=== PATIENT | female | born 1975 | race Caucasian/White ===

== ENCOUNTER 2020-05-02 09:20 | Emergency (ER) | payer BC ==
[~2020-05-02] VITALS: Ht 165.1 cm; Wt 64.4 kg
--- OUTSIDE RECORDS SUMMARY | ~2020-05-02 | XMS | Encounter Summary ---
Demographics + + + | Address | [address] | | | [place] [address] | + + + | Home Phone | | + + + | Preferred Language | Unknown | + + + | Marital Status | | + + + | Orthodox Affiliation | 1013 | + + + | Race | Unknown | + + + | Ethnic Group | Unknown | + + + Author + + + | Author | [facility] | | | and [place] | + + + | Organization | [facility] | | | and [place] | + + + | Address | Unknown | + + + | Phone | Unavailable | + + + Support + + + + + | Name | Relationship | Address | Phone | + + + + + | El Nava | ECON | [address] | | | | | [place] | | | | | [address] | | + + + + + | Chey Hein | ECON | [place] | | | | | [address] | | + + + + + Care Team Providers + +------+ + | Care Sas Developer Name | Role | Phone | + +------+ + | Iraida Loredo | PCP | | | PA-C | | | + +------+ + Encounter Details +--------+ + + + + | Date | Type | Department | Care Team | Description | +--------+ + + + + | 04/07/ | Orders Only | [facility] | Pérez Hilliard MD | Ruptured lumbar disc | | 2018 | | NEUROSURGERY [address] | [address] | (Primary Dx) | | | | [address] | [place] [address] | | | | | [place] | [phone] | | | | | [address] | | | | | | [phone] | | | +--------+ + + + + Social History + +-------+ +--------+------+ | Tobacco Use | Types | Packs/Day | Years | Date | | | | | Used | | + +-------+ +--------+------+ | Never Smoker | | | | | + +-------+ +--------+------+ + +---+---+---+ | Smokeless Tobacco: | | | | | Never Used | | | | + +---+---+---+ + + +---------+ + | Alcohol Use | Drinks/Week | oz/Week | Comments | + + +---------+ + | Yes | | | Occasionally, | | | | | Socially | + + +---------+ + + + + | Sex Assigned at | Date Recorded | | | | + + + | Not on file | | + + + documented as of this encounter Plan of Treatment Not on filedocumented as of this encounter Visit Diagnoses + + | Diagnosis | + + | Ruptured lumbar disc - Primary Displacement of lumbar intervertebral disc without | | myelopathy | + + documented in this encounter"
--- OUTSIDE RECORDS SUMMARY | ~2020-05-02 | XMS | Encounter Summary ---
Demographics + + + | Address | [address] | | | [place] [address] | + + + | Home Phone | | + + + | Preferred Language | Unknown | + + + | Marital Status | | + + + | Faith Affiliation | 1013 | + + + | Race | Unknown | + + + | Ethnic Group | Unknown | + + + Author + + + | Author | [facility] | | | and [place] | + + + | Organization | [facility] | | | and [...] [place] | | | | | [address] | | + + + + + | Chey Hein | ECON | [place] | | | | | [address] | | + + + + + Care Team Providers + +------+ + | Care Assistant Prosecuting Attorney Name | Role | Phone | + +------+ + | Iraida Loredo | PCP | | | PA-C | | | + +------+ + Encounter Details +--------+ + + + + | Date | Type | Department | Care Team | Description | +--------+ + + + + | 01/27/ | Episode | [facility] [place] | Suze Aragon, | | | 2017 | Changes | NEUROSURGERY [address] | [place] | | | | | [address] | | | | | | [place] | | | | | | [address] | | | | | | [phone] | | | +--------+ + + + [...] filedocumented as of this encounter Visit Diagnoses Not on filedocumented in this encounter"
--- OUTSIDE RECORDS SUMMARY | ~2020-05-02 | XMS | Encounter Summary ---
Demographics + + + | Address | [address] | | | [place] [address] | + + + | Home Phone | | + + + | Preferred Language | Unknown | + + + | Marital Status | | + + + | Confucianist Affiliation | 1013 | + + + | Race | Unknown | + + + | Ethnic Group | Unknown | + + + Author + + + | Author | [facility] | | | and [place] | + + + | Organization | [facility] | | | and [...] [place] | | | | | [address] | | + + + + + | Chey Hein | ECON | [place] | | | | | [address] | | + + + + + Care Team Providers + +------+ + | Care Seamark Advanced Operator Maintainer Name | Role | Phone | + +------+ + | Iraida Loredo | PCP | | | PA-C | | | + +------+ + Reason for Visit + + + | Reason | Comments | + + + | Back Pain | | + + + Evaluate & Treat (Routine) +--------+--------+ + + + + | Status | Reason | Specialty | Diagnoses / | Referred By | Referred To | | | | | Procedures | Contact | Contact | +--------+--------+ + + + + | Closed | | Neurosurgery | Diagnoses | Eleanor, | Brayan, | | | | | Lumbar disc | James Carrion, | Dillon Mckeon DO | | | | | herniation | MD [address] | [address] | | | | | | [address] | [address] | | | | | | [place], | [place] | | | | | | [place] [address] | [address] Phone: | | | | | | Phone: | [phone] | | | | | | [phone] | Fax: | | | | | | Fax: | [phone] | | | | | | [phone] | | +--------+--------+ + + + + Encounter Details +--------+---------+ + + + | Date | Type | Department | Care Team | Description | +--------+---------+ + + + | 01/23/ | Office | [facility] | Dillon Schmidt, | Lumbar disc | | 2017 | Visit | NEUROSURGERY [address] | DO [address] | herniation (Primary | | | | [address] | [address] [place], [place] | Dx); Lumbar | | | | [place], [place] | [address] | radiculopathy; | | | | [address] | | Chronic midline low | | | | [phone] | | back pain with | | | | | | right-sided sciatica | +--------+---------+ + + + Social History + +-------+ [...] + + documented as of this encounter Last Filed Vital Signs + + + + + | Vital Sign | Reading | Time Taken | Comments | + + + + + | Blood Pressure | 108/72 | 01/23/2018 10:43 AM | | | | | PDT | | + + + + + | Pulse | 72 | 01/23/2018 10:43 AM | | | | | PDT | | + + + + + | Temperature | - | - | | + + + + + | Respiratory Rate | - | - | | + + + + + | Oxygen Saturation | - | - | | + + + + + | Inhaled Oxygen | - | - | | | Concentration | | | | + + + + + | Weight | 61.2 kg (135 lb) | 01/23/2018 10:43 AM | | | | | PDT | | + + + + + | Height | 162.6 cm (5' 4") | 01/23/2018 10:43 AM | | | | | PDT | | + + + + + | Body Mass Index | 23.17 | 01/23/2018 10:43 AM | | | | | PDT | | + + + + + documented in this encounter Patient Instructions Patient Instructions Dillon Schmidt DO - 01/23/2018 10:30 AM PDTPlease follow-up with you r primary care physician for preoperative clearance. Please present for surgery when scheduled. documented in this encounter Progress Notes Dillon Schmidt DO - 01/23/2018 10:30 AM PDTFormatting of this note might be different fro m the original. Dillon Schmidt DO [address] [facility] [place] [address] FAX: [phone] NEUROSURGERY HISTORY AND PHYSICAL EXAMINATION CHIEF COMPLAINT: Chief Complaint Patient presents with Back Pain HISTORY OF PRESENT ILLNESS: The patient is a 42 y.o. female with the complaint of right le g pain symptoms that began many years ago, but is worse since May 2017. 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 She works at [employer]. The symptoms have been unchanged. She rates the pain as moderate. The symptoms are daily. She describes the pain as aching. The patient describes leg symptoms that occur on primarily on the right. The leg symptoms account for 90% of her symptoms. The leg symptoms are constant, and the symptoms travel fro m the back to the sole of the foot. The patient also describes numbness of the leg. The patient does not report any change in bowel or bladder function recently. Her symptoms improve with rest and walking. Her symptoms worsen with changing position, standing, sitting, bending, twisting, stairs an d light exertion. She has tried lifestyle modification, pain medication, rest, massage, chiropractics, acupun cture, steroid injections. PAST MEDICAL HISTORY: History reviewed. No pertinent past medical history. PAST SURGICAL HISTORY: History reviewed. No pertinent surgical history. CURRENT MEDICATIONS: No current outpatient prescriptions on file. No current facility-administered medications for this visit. ALLERGIES: Allergies Allergen Reactions Hydrocodone Nausea And Vomiting SOCIAL HISTORY: The patient reports that she has never smoked. She has never used smokeless tobacco. She r eports that she drinks alcohol. She reports that she does not use drugs. FAMILY HISTORY: Family History Problem Relation Age of Onset Prostate cancer Paternal Uncle Cancer Maternal Grandfather Leukemia Emphysema Paternal Grandmother Emphysema Paternal Grandfather REVIEW OF SYSTEMS GENERALLY: No fever, no night sweats, no anemia, no fatigue, no recent profound weight ch anges. EYES: No eye problems, no use of corrective lenses, no eye injury, no double vision, no bl indness. EARS, NOSE, AND THROAT: No changes in taste or smell, no hearing difficulty, no ringing in the ears, no ear drainage, no dizziness, no voice changes, no difficulty swallowing, no sig nificant snoring, no sleep apnea, no sinus problems, + major dental work. NEUROLOGICALLY: Please see the review of systems discussed above in the history of present illness. PSYCHIATRIC: No depression, no sleep disorders, no anxiety, no bipolar disorder, no psycho tic episodes. CARDIOVASCULAR: No heart attacks, no heart murmur, no heart fluttering, no chest pain, no ankle swelling. LUNG DISEASE: No shortness of breath, no cough, no tuberculosis, no bloody cough, no asth ma, no emphysema/COPD. GASTROINTESTINAL: No bowel disease, no nausea or vomiting, no rectal bleeding, no constipa tion, no stool incontinence, no liver disease, no gallbladder disease, no abdominal pain, no ulcers. KIDNEY DISEASE: No urinary frequency, no painful or difficult urination, no incontinence. ENDOCRINE: No diabetes, no thyroid disease, no osteopenia or osteoporosis, no breast drain age. SKIN: No breast lumps, no skin changes, no rashes, no itches. HEMATOLOGIC/LYMPHATIC: No enlarged lymph nodes, no easy or unusual bleeding, no personal h istory of cancer. RHEUMATOLOGIC: No joint arthritis, no rheumatoid arthritis. PHYSICAL EXAMINATION: Blood pressure 108/72, pulse 72, height 1.626 m (5' 4"), weight 61.2 kg (135 lb). Body mass index is 23.17 kg/m. GENERAL: Fabio Fisher is in no acute distress with unlabored respirations. The patie nt does appear uncomfortable throughout the exam today. HEENT: Head: Normocephalic/atraumatic with no areas of recent trauma. Eyes: Normal sclerae without icterus. Ears: No drainage or tenderness. Nasopharnyx: Clear without drainage. Oropharnyx: Clear without erythema. NECK (ANTERIOR): Supple and without palpable masses. CHEST: Clear to ausculation without crackles or wheeze. HEART: Regular rate and rhythm without murmurs. ABDOMEN: Soft, non-tender, non-distended, and without palpable masses. The patient is not o bese. SPINE: There is no tenderness of there cervical or thoracic spine. The lumbar spine shows there is tenderness in the midline of the L5, S1 levels. To palpati on, there is no significant myofascial tenderness. There is no significant pain to provacative testing of the SI joint. There is no major deformity noted. EXTREMITIES: No cyanosis, clubbing, or edema. Distal pulses are palpable. NEUROLOGICAL EXAM: MENTAL STATUS: The patient is awake, alert, and oriented. She follows simple and complex commands. Her speech is fluent, she comprehends speech well, and she repeats well. She has no apparent deficits with short or exterminator helper memory. CRANIAL NERVES: II: Acuity is intact. Barnard are full to confrontation. III, IV, : The pupils are reactive. Extraocular movements are intact. No ptosis is note d. V: Facial sensation is intact and symmetric. VII: Facial movements are symmetric. VIII: Hearing is intact bilaterally. IX, X: The uvula and palate move appropriately. XI: Shrug is equal bilaterally. XII: Tongue protrusion is midline. MOTOR EXAM: (5 IS NORMAL) * Indicates pain limited MUSCLE/ MOVEMENT: RIGHT LEFT Deltoids 5 5 Biceps 5 5 Triceps 5 5 Wrist Flexion 5 5 Wrist Extension 5 5 Median Intrinsics 5 5 Ulnar Intrinsics 5 5 Nail Specialist Strength 5 5 Hip Flexion 5 5 Hip Extension 5 5 Knee Flexion 5 5 Knee Extension 5 5 Dorsiflexion 5 5 Extensor Hallicus Longus 5 5 Plantarflexion 4+ 5 SENSORY EXAM: Sensory exam shows right S1-type dysesthesia. REFLEXES: (2 OR 2+ IS NORMAL) REFLEX: RIGHT LEFT BICEPS 2+ 2+ BRACHIORADIALIS 2+ 2+ TRICEPS 2+ 2+ PATELLAR 2+ 2+ ACHILLES 1+ 2+ LOPEZ'S ABSENT ABSENT PLANTAR DOWNGOING DOWNGOING GAIT: Gait is steady. PERIPHERAL NERVE/MISC: Tinel is negative at the wrists and elbows bilaterally. Phalen is negative. Straight leg raise is positive on the left. Jose's test of the hips is negative bilaterally. TEST AND RADIOGRAPHIC REVIEW: The patient's imaging was reviewed in detail with the patient today during the visit. The MRI of the lumbar spine from 08/01/17 demonstrates loss of lumbar lordosis. There is spondyl osis L4-5 and L5-S1 with a large disc bulge at L5-S1 eccentric to the right with severe late ral recess stenosis at that level. Lumbar x-rays show no major instability. ASSESSMENT: NEUROSURGICAL DIAGNOSES: Encounter Diagnoses Name Primary? Lumbar disc herniation Yes Lumbar radiculopathy Chronic midline low back pain with right-sided sciatica GENERAL DIAGNOSES: History reviewed. No pertinent past medical history. PLAN: Fabio Fisher presented today, and it was a pleasure seeing this patient and assessing her neurologic problems. The patient has a large disc bulge at L5-S1 with severe right lateral recess stenosis. This is likely conbtibuting to her back and leg symptoms. I had a lengthy discussion with the patient about her options for care including surgical a nd non-surgical options. She would like to proceed with minimally-invasive microdiscectomy o n the right at L5-S1. We discussed the risks, alternatives, and benefits to surgical intervention with Fabio Fisher in clinic. These risks included but were not limited to , stroke, heart attac k, numbness, weakness, paralysis, recurrence, instability, subsidence, adjacent segment dege neration, cerebrospinal fluid leak, bleeding, infection, injury to surrounding tissues and o rgans, injury from positioning, injury to the nerves, and need for additional surgery. Surgical options were discussed and the technique to be employed was described in detail to her. All her questions were answered. We discussed that the goal of the surgery is to prevent progression of her disease, but it is not considered a cure. We also discussed that although some patients may obtain 100% sym ptom relief, it is realistic to anticipate that some symptoms will continue postoperatively despite a successful surgery. We also discussed that there is no guarantee that surgery will provide improvement in her c ondition, and indeed may even worsen the symptoms. We also discussed that in the course of the procedure the operative plan may be altered to include more, less, or different levels d epending upon findings in order to provide her with the best possible outcome. She will follow-up with her primary care provider for preoperative clearance and optimizati on prior to presenting for surgery. She will undergo MRI of the lumbar spine prior to surgery since the last MRI was from 2016. ELECTRONICALLY SIGNED BY: Dillon Schmidt DO, 01/23/2018 11:23 documented in this encounter Plan of Treatment Not on filedocumented as of this encounter Visit Diagnoses + + | Diagnosis | + + | Lumbar disc herniation - Primary Displacement of lumbar intervertebral disc without | | myelopathy | + + | Lumbar radiculopathy Thoracic or lumbosacral neuritis or radiculitis, unspecified | + + | Chronic midline low back pain with right-sided sciatica | + + documented in this encounter
--- OUTSIDE RECORDS SUMMARY | ~2020-05-02 | XMS | Encounter Summary ---
Demographics + + + | Address | [address] | | | [place] [address] | + + + | Home Phone | | + + + | Preferred Language | Unknown | + + + | Marital Status | | + + + | Caodaism Affiliation | 1013 | + + + | Race | Unknown | + + + | Ethnic Group | Unknown | + + + Author + + + | Author | [facility] | | | and [place] | + + + | Organization | [facility] | | | and [...] [place] | | | | | [address] | | + + + + + | Chey Hein | ECON | FORGE OPERATOR [place] | | | | | [address] | | + + + + + Care Team Providers + +------+ + | Care Furniture Mechanic Name | Role | Phone | + +------+ + | Iraida Loredo | PCP | | | PA-C | | | + +------+ + Reason for Visit Auth/Cert +--------+--------+ + + + + | Status | Reason | Specialty | Diagnoses / | Referred By | Referred To | | | | | Procedures | Contact | Contact | +--------+--------+ + + + + | | | | Diagnoses | | | | | | | Ruptured | | | | | | | lumbar disc | | | | | | | (M51.26) | | | | | | | Procedures | | | | | | | CO LAMNOTMY | | | | | | | INCL | | | | | | | W/DCMPRSN | | | | | | | NRV ROOT 1 | | | | | | | INTRSPC | | | | | | | LUMBR L5-S1 | | | | | | | | | | | | | | Microdiscect | | | | | | | robin | | | +--------+--------+ + + + + Encounter Details +--------+ + + + + | Date | Type | Department | Care Team | Description | +--------+ + + + + | 05/04/ | Anesthesia | [facility] | Steven Willams MD | | | 2018 | Event | [facility] | [address] | | | | | [address] | [place], [place] | | | | | [place], [place] | [address] | | | | | [address] | | | | | | [phone] | [place], | | | | | | Carlos Perdue MD | | | | | | [address] | | | | | | [place], [place] | | | | | | [address] | | | | | | | | +--------+ + + + + Anesthesia Record + + + + + | Procedure Name | Responsible | Anesthesia Start | Anesthesia Stop Time | | | Anesthesiologist | Time | | + + + + + | L5-S1 | Steven Willams MD | 05/04/18 1051 | 05/04/18 1207 | | Microdiscectomy | | | | | (Right Back) | | | | + + + + + +----+---+ + + | Da | T | Event | Comment | | te | i | | | | | m | | | | | e | | | +----+---+ + + | 08 | 1 | | | | /1 | 0 | | | | 3/ | 4 | | | | 20 | 7 | | | | 18 | | | | +----+---+ + + | | 1 | An Checkout | Pre-use anesthesia machine/equipment checkout. | | | 0 | | | | | 5 | | | | | 1 | | | +----+---+ + + | | 1 | An Start | Reassessment prior to anesthesia induction/procedure. | | | 0 | | | | | 5 | | | | | 1 | | | +----+---+ + + | | 1 | Antibiotic | | | | 0 | Given | | | | 5 | | | | | 1 | | | +----+---+ + + | | 1 | Preoxygenat | | | | 0 | ed | | | | 5 | | | | | 4 | | | +----+---+ + + | | 1 | An | | | | 0 | Induction | | | | 5 | | | | | 5 | | | +----+---+ + + | | 1 | An | | | | 0 | Intubation | | | | 5 | | | | | 9 | | | +----+---+ + + | | 1 | Lengby | | | | 1 | 43-degrees | | | | 0 | | | | | 6 | | | +----+---+ + + | | 1 | Pre-Procedu | | | | 1 | ral Timeout | | | | 0 | Completed | | | | 6 | | | +----+---+ + + | | 1 | First | | | | 1 | Inc/Proc St | | | | 0 | | | | | 8 | | | +----+---+ + + | | 1 | Lengby off | | | | 1 | | | | | 5 | | | | | 4 | | | +----+---+ + + | | 1 | Breathing | | | | 1 | Spontaneous | | | | 5 | ly | | | | 4 | | | +----+---+ + + | | 1 | Oropharynx | | | | 2 | Suctioned | | | | 0 | | | | | 3 | | | +----+---+ + + | | 1 | Moving | | | | 2 | Purposefull | | | | 0 | y | | | | 3 | | | +----+---+ + + | | 1 | Extubated | | | | 2 | Awake | | | | 0 | | | | | 3 | | | +----+---+ + + | | 1 | an stop | | | | 2 | data | | | | 0 | | | | | 3 | | | +----+---+ + + | | 1 | An Stop | Patient handed off to recovery nurse. | | | 0 | | | | | 7 | | | +----+---+ + + +------+ | Meds | +------+ + + + | Name | Total | + + + | lidocaine 2% | 20 mg | + + + | propofol (DIPRIVAN) injection | 200 mg | | (bolus) (20 mL) | | + + + | dexamethasone | 10 mg | + + + | HYDROmorphone | 0.4 mg | + + + | rocuronium | 30 mg | + + + | neostigmine | 2 mg | + + + | glycopyrrolate | 0.4 mg | + + + | ceFAZolin (ANCEF, KEFZOL) 100 | 2 g | | mg/mL IV syringe 2 g | | + + + | midazolam | 2 mg | + + + | lactated ringers (LR) infusion | 1,000 mL | + + + + + | Name | + + | N2O Flow Rate (L/Min) | + + | O2 Flow Rate (L/Min) | + + | Insp O2 | + + | Exp LEONIE | + + | Air Flow Rate (L/Min) | + + + + | No blood administrations on file. | + + +--------+ + + + | Type | Details | Placement | Removal | +--------+ + + + | Periph | 05/04/18; 1039; Right; Distal; | 05/04/18 1039 by | 05/04/18 1758 by | | eral | Antecubital; [id number] | Carolyn Erwin, RN | Melina Stevenson, | | IV | catheter system; 20 gauge; | | RN | | | intradermal injection, tolerated | | | | | well; no longer indicated, | | | | | catheter/device intact, removed | | | | | per policy/procedure; healing | | | | | within expectations; 05/04/18; | | | | | 1758 | | | +--------+ + + + | Airway | Placement Date: 05/04/18; | 05/04/18 1059 by | 05/04/18 1203 by | | | Placement Time: 1059; Mask | Steven Willams MD | Steven Willams MD | | | Ventilation: EZ; Airway Grade: 1; | | | | | Successful Technique: Mac; | | | | | Laryngoscope Blade Size: 3; | | | | | Airway Type: oral, endotracheal, | | | | | cuffed, disposable; Size: 6.5; | | | | | Airway Tube Secured At: 22; Tube | | | | | Reference Point: lip; Trauma: | | | | | none; Placement Check: bilateral | | | | | chest rise, exhaled CO2 detection | | | | | device; Removal Date: 05/04/18; | | | | | Removal Time: 1203 | | | +--------+ + + + | Read | 05/04/18; 1106; Bilateral; back; | 05/04/18 1106 by | 05/04/181757 by | | only - | healing within expectations; | Emmanuel Jeffery RN | Melina Stevenson, | | | 05/04/18; 1757 | | RN | | Incisi | | | | | on | | | | +--------+ + + + documented in this encounter Social History + +-------+ +--------+------+ | Tobacco [...] + + +---------+ + | Yes | 1 Glasses of wine | 2.0 | one drink a week at | | | 1 Shots of liquor | | most | + + +---------+ + + + + | Sex Assigned at | Date Recorded | | | | + + + | Not on file | | + + + documented as of this encounter [place] Notes Anesthesia Postprocedure Evaluation - Steven Willams MD - 05/04/2018 2:50 PM PDT ANESTHESIA POSTANESTHESIA EVALUATION Fabio Fisher 43 y.o. female 1975 [id number] Procedure(s) L5-S1 Microdiscectomy (Right Back) Cooperates? Yes Mental Status Performs simple tasks. Respiratory Satisfactory - Airway patent (self maintained). Cardiovascular Satisfactory - Blood pressure and heart rate acceptable Temperature Satisfactory Pain Satisfactory N/V Control Satisfactory Hydration Satisfactory - No signs of dehydration Complications None apparent Vitals: 05/04/18 1325 05/04/18 1345 05/04/18 1429 BP: 100/62 121/52 Pulse: 56 68 83 Temp: 36.2 C (97.1 F) Resp: 17 18 16 SpO2: 100% 98% 100% Electronically signed by Steven Willams MD 05/04/2018 14:50 [facility]ronically signed by Steven Willams MD at 2017 2:50 PM PDTAnesthesia Preprocedure Evaluation - Steven Willams MD - 05/04/2018 10:43 A M PDT ANESTHESIA PREANESTHESIA EVALUATION Fabio Fisher 43 y.o. female 1975 [id number] Procedure(s): L5-S1 Microdiscectomy (Right Back) Medical history, anesthesia, medications, allergy, NPO status verified histories reviewed. Labs reviewed. Review of Systems / Med History Anesthesia History No anesthesia complications. (-) malignant hyperthermia Cardiovascular Negative except where noted below. Pulmonary Negative except where noted below. (-) smoking history Physical Exam Airway MP II, TM >3 FB, Mouth opening >2 FB. Neck: full ROM, extends >30 degrees. Jaw protrus ion normal. Dental Grossly normal except where noted below.; CV Rhythm regular. Rate normal. (-) murmur. Pulm Clear to auscultation bilaterally. Neuro Grossly normal. Anesthesia Plan ASA 1 Type: General. Induction: Intravenous. Potential problems: None anticipated. Monitors: Standard ASA monitors. Consent statement:Anesthetic plan, alternatives, risks and benefits discussed with patient. Risks discussed included (but were not limited to): nausea, pain, respiratory events, perio perative CV events, heart problems, . Consenting person understands and agrees to proceed. PARQ. Electronically Signed by: Steven Willams MD ESig date/time: 05/04/2018 10:43 documented in this enco unter Plan of Treatment Not on filedocumented as of this encounter Visit Diagnoses Not on filedocumented in this encounter Administered Medications + +--------+ +------+------+------+ | Medication Order | MAR | Action | Dose | Rate | Site | | | Action | Date | | | | + +--------+ +------+------+------+ | ceFAZolin (ANCEF, KEFZOL) 100 | Given | 05/04/20 | 2 g | | | | mg/mL IV syringe 2 g 2 g, | | 18 10:51 | | | | | Intravenous, Administer over 30 | | AM PDT | | | | | Minutes, Prior to Incision, | | | | | | | Starting 05/04/18 at 0101, For | | | | | | | 1 dose, Administer within 1 hour | | | | | | | of surgical incision., Pre-op, | | | | | | | Indications: Surgical Prophylaxis | | | | | | + +--------+ +------+------+------+ +---+---+ | | | +---+---+ + +-------+ +-------+---+---+ | dexamethasone (PF) 10 mg/mL | Given | 05/04/20 | 10 mg | | | | injection Intravenous, PRN, | | 18 11:05 | | | | | Starting Fri05/04/18 at 1105, | | AM PDT | | | | | Anesthesia Intra-op | | | | | | + +-------+ +-------+---+---+ +---+---+ | | | +---+---+ + +-------+ +--------+---+---+ | glycopyrrolate (ROBINUL) | Given | 05/04/20 | 0.2 mg | | | | injection Intravenous, PRN, | | 18 11:56 | | | | | Secretions, Starting Fri05/04/18 | | AM PDT | | | | | at 1152, Anesthesia Intra-op | | | | | | + +-------+ +--------+---+---+ +-------+ +--------+---+---+ | Given | 05/04/20 | 0.2 mg | | | | | 18 11:52 | | | | | | AM PDT | | | | +-------+ +--------+---+---+ +---+---+ | | | +---+---+ + +-------+ +--------+---+---+ | HYDROmorphone (DILAUDID) 2 | Given | 05/04/20 | 0.4 mg | | | | mg/mL injection Intravenous, | | 18 11:09 | | | | | PRN, Pain, Starting 05/04/18 | | AM PDT | | | | | at 1109, Anesthesia Intra-op | | | | | | + +-------+ +--------+---+---+ +---+---+ | | | +---+---+ + + + +---+-------+---+ | lactated ringers (LR) infusion | Continue | 05/04/20 | | 100 | | | at 100 mL/hr, Intravenous, | bag | 18 2:21 | | mL/hr | | | CONTINUOUS, Starting Fri05/04/18 | from | PM PDT | | | | | at 1030 | transfer | | | | | + + + +---+-------+---+ +---------+ +---+-------+---+ | New Bag | 05/04/20 | | 100 | | | | 18 12:24 | | mL/hr | | | | PM PDT | | | | +---------+ +---+-------+---+ | New Bag | 05/04/20 | | | | | | 18 10:50 | | | | | | AM PDT | | | | +---------+ +---+-------+---+ +---+---+ | | | +---+---+ + +-------+ +-------+---+---+ | lidocaine (PF) 2% injection | Given | 05/04/20 | 20 mg | | | | Intravenous, PRN, Starting Mon | | 18 10:55 | | | | | 05/04/18 at 1055, Anesthesia | | AM PDT | | | | | Intra-op | | | | | | + +-------+ +-------+---+---+ +---+---+ | | | +---+---+ + +-------+ +------+---+---+ | midazolam (VERSED) 1 mg/mL | Given | 05/04/20 | 2 mg | | | | injection Intravenous, PRN, | | 18 10:50 | | | | | Anxiety, Starting Fri05/04/18 at | | AM PDT | | | | | 1050, Anesthesia Intra-op | | | | | | + +-------+ +------+---+---+ +---+---+ | | | +---+---+ + +-------+ +------+---+---+ | neostigmine (PROSTIGMIN) 1 | Given | 05/04/20 | 1 mg | | | | mg/mL injection Intravenous, | | 18 11:56 | | | | | PRN, Starting Fri05/04/18 at | | AM PDT | | | | | 1152, Anesthesia Intra-op | | | | | | + +-------+ +------+---+---+ +-------+ +------+---+---+ | Given | 05/04/20 | 1 mg | | | | | 18 11:52 | | | | | | AM PDT | | | | +-------+ +------+---+---+ +---+---+ | | | +---+---+ + +-------+ +--------+---+---+ | propofol (DIPRIVAN) injection | Given | 05/04/20 | 200 mg | | | | Intravenous, PRN, Starting Mon | | 18 10:55 | | | | | 05/04/18 at 1055, Anesthesia | | AM PDT | | | | | Intra-op | | | | | | + +-------+ +--------+---+---+ +---+---+ | | | +---+---+ + +-------+ +-------+---+---+ | rocuronium (ZEMURON) injection | Given | 05/04/20 | 30 mg | | | | Intravenous, PRN, Starting Mon | | 18 10:55 | | | | | 05/04/18 at 1055, Anesthesia | | AM PDT | | | | | Intra-op | | | | | | + +-------+ +-------+---+---+ +---+---+ | | | +---+---+ documented in this encounter"
--- OUTSIDE RECORDS SUMMARY | ~2020-05-02 | XMS | Encounter Summary ---
Demographics + + + | Address | [address] | | | [place] [address] | + + + | Home Phone | | + + + | Preferred Language | Unknown | + + + | Marital Status | | + + + | Synagogue Affiliation | 1013 | + + + | Race | Unknown | + + + | Ethnic Group | Unknown | + + + Author + + + | Author | [facility] | | | and [place] | + + + | Organization | [facility] | | | and [...] [place] | | | | | [address] | | + + + + + | Chey Hein | ECON | TRANSMISSION DESIGN ENGINEER [place] | | | | | [address] | | + + + + + Care Team Providers + +------+ + | Care Hospital Medical Biller Name | Role | Phone | + [...] | | | | | | | [place] LAMNOTMY | | | | | | [...] + + + + | 05/04/ | Hospital | [facility] | Pérez Hilliard MD | | | 2018 | Encounter | MED CTR XRAY [address] | | | | | [place] | [place] [address] | | | | | [place] [address] | [phone] | | | | | [phone] | | | +--------+ + + + [...] + + documented as of this encounter Functional Status + + + + | Functional Status | Response | Date of Assessment | + + + + | Are you deaf or do you have serious | No | 05/04/2018 | | difficulty hearing? | | | + + + + | Are you blind or do you have serious | No | 05/04/2018 | | difficulty seeing, even when wearing | | | | glasses? | | | + + + + | Do you have serious difficulty walking or | No | 05/04/2018 | | climbing stairs? (5 years old or older) | | | + + + + | Do you have difficulty dressing or bathing? | No | 05/04/2018 | | (5 years old or older) | | | + + + + | Because of a physical, mental, or emotional | No | 05/04/2018 | | condition, do you have difficulty doing | | | | errands alone such as visiting a doctor's | | | | office or shopping? [15 years old or | | | | older)] | | | + + + + + + + + | Cognitive Status | Response | Date of Assessment | + + + + | Because of a physical, mental, or emotional | No | 05/04/2018 | | condition, do you have serious difficulty | | | | concentrating, remembering, or making | | | | decisions? (5 years old or older) | | | + + + + documented as of this encounter Medications at Time of Discharge + + + +---------+ + + | Medication | Sig | Dispensed | Refills | Start | End Date | | | | | | Date | | + + + +---------+ + + | levonorgestrel | 1 Device by | | 0 | | | | (MIRENA, 52 MG,) 20 | Intrauterine route | | | | | | MCG/24HR IUD | once. | | | | | + + + +---------+ + + | cyclobenzaprine | Take 0.5-1 tablets | 90 | 3 | 05/04/20 | | | (FLEXERIL) 10 mg | by mouth 3 times | tablet | | 18 | 8 | | tablet | daily as needed for | | | | | | | Muscle spasms. | | | | | + + + +---------+ + + | docusate sodium | Take 1 capsule by | 60 | 2 | 05/04/20 | | | (COLACE) 100 mg | mouth Twice daily | capsule | | 18 | 8 | | capsule | as needed for | | | | | | | Constipation. | | | | | + + + +---------+ + + | fluticasone | 1 spray by Nasal | | 0 | | | | (FLONASE) 50 | route Daily as | | | | 8 | | mcg/nasal spray | needed. | | | | | + + + +---------+ + + | ondansetron | Take 1 tablet by | 24 | 2 | 05/04/20 | | | (ZOFRAN ODT) 4 mg | mouth every 8 hours | tablet | | 18 | 8 | | disintegrating | as needed for Nausea | | | | | | tablet | for up to 7 days. | | | | | + + + +---------+ + + | oxyCODONE | Take 1-2 tablets by | 90 | 0 | 05/04/20 | | | (ROXICODONE) 5 mg | mouth every 4 hours | tablet | | 18 | 8 | | tablet | as needed for Pain. | | | | | + + + +---------+ + + documented as of this encounter Plan of Treatment Not on filedocumented as of this encounter Procedures + +--------+ + + + | Procedure Name | Priori | Date/Time | Associated Diagnosis | Comments | | | ty | | | | + +--------+ + + + | YULISSA CARTER STATS NO | Routin | 05/04/2018 | | Results for this | | CHARGE | e | 12:06 PM | | procedure are in the | | | | PDT | | results section. | + +--------+ + + + documented in this encounter Results YULISSA TurnerArm Stats No Charge (05/04/2018 12:06 PM PDT) + + | Specimen | + + | | + + + + + | Narrative | Performed At | + + + | This exam has been auto-finalized and the interpretation may exist | [facility] | | elsewhere in the chart. | | + + + + +---------+ + + | Performing | Address | City/State/Zipcode | Phone Number | | Organization | | | | + +---------+ + + | [facility] | | | | + +---------+ + + documented in this encounter Visit Diagnoses Not on filedocumented in this encounter"
--- OUTSIDE RECORDS SUMMARY | ~2020-05-02 | XMS | Encounter Summary ---
Demographics + + + | Address | [address] | | | [place] [address] | + + + | Home Phone | | + + + | Preferred Language | Unknown | + + + | Marital Status | | + + + | Bahai Affiliation | 1013 | + + + | Race | Unknown | + + + | Ethnic Group | Unknown | + + + Author + + + | Author | [facility] | | | and [place] | + + + | Organization | [facility] | | | [...] [place] | | | | | [address] | | + + + + + | Chey Hein | ECON | [place] | | | | | [address] | | + + + + + Care Team Providers + +------+ + | Care Personal Lines Account Manager Name | Role | Phone | + +------+ + | Iraida Loredo | PCP | | | PA-C | | | + +------+ + Encounter Details +--------+ + + + + | Date | Type | Department | Care Team | Description | +--------+ + + + + | 04/07/ | Episode | [facility] [place] | Delia Granado, | | | 2018 | Changes | NEUROSURGERY [address] | BOOK JACKET COVER MACHINE OPERATOR | | | | | [address] [place] | | | | | | [place] | | | | | | [address] | | | | | | [phone] | | | +--------+ + + + [...]
--- OUTSIDE RECORDS SUMMARY | ~2020-05-02 | XMS | Encounter Summary ---
Demographics + + + | Address | [address] | | | [place] [address] | + + + | Home Phone | | + + + | Preferred Language | Unknown | + + + | Marital Status | | + + + | Rastafari Affiliation | 1013 | + + + | Race | Unknown | + + + | Ethnic Group | Unknown | + + + Author + + + | Author | [facility] | | | and [place] | + + + | Organization | [facility] | | | and [place] | + + + | Address | Unknown | + + + | Phone | Unavailable | + + + Support + + + + + | Name | Relationship | Address | Phone | + + + + + | El Nava | ECON | [address] | | | | | [place] | | | | | [address] | | + + + + + | Chey Hein | ECON | [place] | | | | | [address] | | + + + + + Care Team Providers + +------+ + | Care Video Game Animator Name | Role | Phone | + +------+ + | Iraida Loredo | PCP | | | PA-C | | | + +------+ + Reason for Visit + +--------+ + | Reason | Onset | Comments | | | Date | | + +--------+ + | Coordination Of Care | 04/02/ | | | | 2017 | | + +--------+ + Encounter Details +--------+ + + + + | Date | Type | Department | Care Team | Description | +--------+ + + + + | 04/02/ | Telephone | [facility] | Pérez Hilliard MD | Coordination Of Care | | 2017 | | [address]UR[address]ERY [address] | [address] | | | | | [address] [address] | [place] [address] | | | | | [place] | [phone] | | | | | [address] | | | | | | [phone] | | | +--------+ + + + [...] + + documented as of this encounter Miscellaneous Notes Telephone Encounter - Wai Willams - 04/02/2018 1:23 PM PDTPatient scheduled 04/07/18 Elec tronically signed by Wai Willams at 04/02/2018 1:23 PM PDTTelephone Encounter - Ines Hernández RN - 04/02/2018 11:39 [address] by Dr. Hilliard Recommend: Soon PA visit when Dr. Hilliard is in clinic Studies requested by the PCP prior to appointment date: None Referral routed for to: Neurosurgery administrative assistant front desk staff PA Information: Right L5-S1 discectomy documented in this encount er Plan of Treatment Not on filedocumented as of this encounter Visit Diagnoses Not on filedocumented in this encounter"
--- OUTSIDE RECORDS SUMMARY | ~2020-05-02 | XMS | Encounter Summary ---
Demographics + + + | Address | [address] | | | [place] [address] | + + + | Home Phone | | + + + | Preferred Language | Unknown | + + + | Marital Status | | + + + | Baptism Affiliation | 1013 | + + + | Race | Unknown | + + + | Ethnic Group | Unknown | + + + Author + + + | Author | [facility] | | | and [place] | + + + | Organization | [facility] | | | and [place] | + + + | Address | Unknown | + + + | Phone | Unavailable | + + + Support + + + + + | Name | Relationship | Address | Phone | + + + + + | El Nava | ECON | [address] | | | | | [place], [place] | | | | | [address] | | + + + + + | Chey Hein | ECON | [place] | | | | | [address] | | + + + + + Care Team Providers + +------+ + | Care Dry Room Operator Name | Role | Phone | + +------+ + | Iraida Loredo | PCP | | | PA-C | | | + +------+ + Reason for Visit + +--------+ + | Reason | Onset | Comments | | | Date | | + +--------+ + | Imaging Only | 02/02/ | MRI | | | 2017 | | + +--------+ + Encounter Details +--------+ + + + + | Date | Type | Department | Care Team | Description | +--------+ + + + + | 02/02/ | Telephone | [facility] | Dillon Schmidt, | Imaging Only (MRI) | | 2017 | | NEUROSURGERY [address] | [address] | | | | | [address] | [address] [place], [place] | | | | | [place] | [address] | | | | | [address] | | | | | | [phone] | | | +--------+ + + + [...] this encounter Miscellaneous Notes Telephone Encounter - Delia Granado Cert MA - 02/05/2018 2:51 PM PDTMRI and clearance w ill be fine to be done on 02/23/18.Electronically signed by David Gonzalez MA at 018 2:51 PM PDTTelephone Encounter - Gypsy Meza - 02/05/2018 2:27 PM PDTPatient h as her MRI and surgery clearance scheduled for 02/23 she just wanted to let us know. Ivanna alegre signed by Gypsy Meza at 02/05/2018 2:28 PM PDTTelephone Encounter - Luann Aragon Cert MA - 02/02/2018 9:51 AM PDTSpoke with Fabio and advised that if she can get the MRI as close to the expiration date that would be okay. It's close enough to her procedure . JORDON ARAGON elephone Encounopal balbuena - Linda Carr - 02/02/2018 8:53 AM PDTSHAN LORA SERVICES: From: Fabio Fisher Patient: Fabio Fisher : 1975 Is this a Trama Call: No Message: R/ her sent MRI. The expiration is 02/24, but the doctor wanted her to have it close r to her surgery day. Please call. Caller ID: Date/Time: 01/30 1:25pm Karin documented in this encounter Plan of Treatment Not on filedocumented as of this encounter Visit Diagnoses Not on filedocumented in this encounter"
--- OUTSIDE RECORDS SUMMARY | ~2020-05-02 | XMS | Encounter Summary ---
Demographics + + + | Address | [address] | | | [place] [address] | + + + | Home Phone | | + + + | Preferred Language | Unknown | + + + | Marital Status | | + + + | Lutheran Affiliation | 1013 | + + + | Race | Unknown | + + + | Ethnic Group | Unknown | + + + Author + + + | Author | [facility] | | | and [place] | + + + | Organization | [facility] | | | [...] [place] | | | | | [address] | | + + + + + | Chey Hein | ECON | [place] | | | | | [address] | | + + + + + Care Team Providers + +------+ + | Care Industrial Maintenance Millwright Name | Role | Phone | + +------+ + | Iraida Loredo | PCP | | | PA-C | | | + +------+ + Encounter Details +--------+ + + + + | Date | Type | Department | Care Team | Description | +--------+ + + + + | 02/05/ | Episode | [facility] [place] | Delia Granado, | | | 2018 | Changes | NEUROSURGERY [address] | BRIDGES AND BUILDINGS SUPERVISOR | | | | | [address] | | | | | | [place] | | | | | | [address] | | | | | | [phone] | | | +--------+ + + + [...]
--- OUTSIDE RECORDS SUMMARY | ~2020-05-02 | XMS | Encounter Summary ---
Demographics + + + | Address | [address] | | | [place] [address] | + + + | Home Phone | | + + + | Preferred Language | Unknown | + + + | Marital Status | | + + + | Confucianism Affiliation | 1013 | + + + | Race | Unknown | + + + | Ethnic Group | Unknown | + + + Author + + + | Author | [facility] | | | and [place] | + + + | Organization | [facility] | | | [...] [place] | | | | | [address] | | + + + + + | Chey Hein | ECON | [employer] [place] | | | | | [address] | | + + + + + Care Team Providers + +------+ + | 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 Name | Role | Phone | + +------+ + | Iraida Loredo | PCP | | | PA-C | | | + +------+ + Reason for Visit +---------+ + | Reason | Comments | +---------+ + | Post Op | Microdiscectomy | +---------+ + Follow Up (Routine) +--------+--------+ + + + + | Status | Reason | Specialty | Diagnoses / | Referred By | Referred To | | | | | Procedures | Contact | Contact | +--------+--------+ + + + + | Closed | | Neurosurgery | Diagnoses | Pérez Hilliard | Pérez Hilliard | | | | | 4 week post | MD [address] | MD [address] | | | | | op/Yam SX: | SE [address]VE | AVE | | | | | 05/04/18 | [place], | [place], [place] | | | | | [address] | [place] [address] | [address] | | | | | Microdiscect | Phone: | Phone: | | | | | robin | [phone] | [phone] | | | | | Procedures | Fax: | Fax: | | | | | POST OP | [phone] | [phone] | +--------+--------+ + + + + Encounter Details +--------+---------+ + + + | Date | Type | Department | Care Team | Description | +--------+---------+ + + + | 06/01/ | Office | [facility] | Toni Garibay, | S/P lumbar | | 2017 | Visit | NEUROSURGERY [address] | PA-C [address] | microdiscectomy | | | | [address] | [address] [place] | (Primary Dx); | | | | [place], [place] | [place] [address] | Sciatica of right | | | | [id number] | [phone] | side without back | | | | [phone] | | pain | +--------+---------+ + + + Social History [...] + + + | Blood Pressure | 119/70 | 06/01/2018 8:46 AM | | | | | PDT | | + + + + + | Pulse | 61 | 06/01/2018 8:46 AM | | | | | PDT [...] Weight | 61.2 kg (135 lb) | 06/01/2018 8:46 AM | | | | | PDT | | + + + + + | Height | 165.1 cm (5' 5") | 06/01/2018 8:46 AM | | | | | PDT | | + + + + + | Body Mass Index | 22.47 | 06/01/2018 8:46 AM | | | | | PDT | | + + + + + documented in this encounter Functional Status + + + [...] + + documented as of this encounter Patient Instructions Patient Instructions Tiffanie Cantrell, Brake Lining Driller - 06/01/2018 8:30 AM PDTIt was a pleasure to see you today. Here is what we discussed. 4 WEEK LUMBAR MICRODISCECTOMY POST-OP INSTRUCTIONS: You may now slowly increase your lifting up to 15 pounds as tolerated. You may now reach ov erhead but it should only be 1-2 pounds. Please refrain from twisting for the next 8 weeks. Bending over to the level of a coffee table is okay. Let pain be your guide. If you are doing an activity that starts causing you pain back off and ease back into it slowly. We don't want you taking any risks that do not need to be take n. Try to avoid lifting and twisting or bending and twisting at the same time. When you do bend over use your legs. You can use heat on your hematoma and gentle massage to help break it down. If you get a few days within your 3 month post op and you are feeling great you can call an d cancel. documented in this encounter Progress Notes Toni Garibay PA-C - 06/01/2018 8:30 AM PDT Toni Garibay PA-C [address] [facility] [place] [address] PHONE: FAX: NEUROSURGERY FOLLOW-UP CHIEF COMPLAINT: Chief Complaint Patient presents with Post Op Microdiscectomy HISTORY OF PRESENT ILLNESS: The patient is a 43 y.o. female that had a microdiscectomy for right leg symptoms on 05/04/2018. She returns and overall is doing good. The patient ment ions that her right leg symptoms are still mildly present. Immediately after surgery her sy mptoms were completely gone and then they ended up coming back. She states that if the pain she is having now is present for the rest of her life then she is okay with that as long as she does not have anymore flare ups. She did develop a hematoma by her incision site abou t 2 weeks after surgery which is slowly improving. The patient has been walking as much as directed. She is not taking pain medications at t his point. The patient has had no issues with her surgical site. PAST MEDICAL HISTORY: Past Medical History: Diagnosis Date Seasonal allergies Spinal stenosis PAST SURGICAL HISTORY: Past Surgical History: Procedure Laterality Date LAMINECTOMY Right 05/04/2018 Procedure: L5-S1 Microdiscectomy; Surgeon: Pérez Hilliard MD; Location: [facility] MAIN OR CURRENT MEDICATIONS: Current Outpatient Prescriptions Medication Sig Dispense Refill levonorgestrel (MIRENA, 52 MG,) 20 MCG/24HR IUD 1 Device by Intrauterine route once. No current facility-administered medications for this visit. ALLERGIES: Allergies Allergen Reactions Hydrocodone Nausea And Vomiting SOCIAL HISTORY: The patient reports that she has never smoked. She has never used smokeless tobacco. She r eports that she drinks about 1.2 oz of alcohol per week . She reports that she does not use drugs. FAMILY HISTORY: Family History Problem Relation Age of Onset Prostate cancer Paternal Uncle Cancer Maternal Grandfather Leukemia Emphysema Paternal Grandmother Emphysema Paternal Grandfather INTERIM PHYSICAL EXAMINATION: Blood pressure 119/70, pulse 61, height 1.651 m (5' 5"), weight 61.2 kg (135 lb), not curre ntly . Body mass index is 22.47 kg/m. REVIEW OF SYSTEMS GENERALLY: No fever, no [...] snoring, no sleep apnea, no sinus problems, no major dental work. NEUROLOGICALLY: Please see the review of systems discussed above in the history of present illness. In addition, the patient has numbness/pain of legs. PSYCHIATRIC: No depression, no sleep disorders, no [...] RHEUMATOLOGIC: No joint arthritis, no rheumatoid arthritis. GENERAL: Fabio Fisher is in no acute distress with unlabored respirations. SPINE: The patient s incision is healing well without drainage, significant erythema, or discharge. There is a marble sized hematoma which patient says has been decreasing in size. EXTREMITIES: No lower extremity edema. NEUROLOGICAL EXAMINATION: MENTAL STATUS: The patient is awake, alert, and oriented. She follows simple and complex commands MOTOR EXAM: Motor strength is 5/5. This is improved when compared to the preoperative exam . SENSORY EXAM: The sensory examination is improved when compared to the preoperative exam. ASSESSMENT: Encounter Diagnoses Name Primary? S/P lumbar microdiscectomy Yes Sciatica of right side without back pain Past Medical History: Diagnosis Date Seasonal allergies Spinal stenosis PLAN: Overall, the patient is doing good. The patient can see some improvements but continues to recover from recent surgery. We discussed increasing the patient s activities now allowing 15 pound lifting. The nehal ent should increase range of motion activities as tolerated. We would like the patient to a dvance slowly with this process and discussed this at length during today's visit. 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 We are hoping to see improvement over the coming weeks to months and plan to continue to fo llow this patient. The patient will follow-up in clinic in around 8 weeks for re-evaluation . I, Toni Garibay PA-C, personally performed the services described in this documentati on, as scribed by DAVID Spear, in my presence, and it is both accurate and comple te. Toni Garibay PA-C 06/01/18 ELECTRONICALLY SIGNED BY: Toni Garibay PA-C, 06/01/2018 9:12 documented in thi s encounter Plan of Treatment Not on filedocumented as of this encounter Visit Diagnoses + + | Diagnosis | + + | S/P lumbar microdiscectomy - Primary Other postprocedural status | + + | Sciatica of right side without back pain | + + documented in this encounter
--- OUTSIDE RECORDS SUMMARY | ~2020-05-02 | XMS | Encounter Summary ---
Demographics + + + | Address | [address] [facility] [address] | | | [place] [address] | + + + | Home Phone | | + + + | Preferred Language | Unknown | + + + | Marital Status | | + + + | Islam Affiliation | 1013 | + + + | Race | Unknown | + + + | Ethnic Group | Unknown | + + + Author + + + | Author | Formerly [facility] | | | and [place] | + + + | Organization | Formerly [facility] | | | [...] [place] | | | | | [id number] | | + + + + + | Chey Hein | ECON | [employer] [place] | | | | | [address] | | + + + + + Care Team Providers + +------+ + | Care Underwear Cutter Name | Role | Phone | + [...] | | | | | | | MI LAMNOTMY | | | | | | [...] + + | 05/04/ | Hospital | [facility] | Pérez Hilliard MD | | | 2018 | Encounter | MED CTR SUR[facility] | [address] | | | | | [address] | [place] [address] | | | | | [place] [address] | [phone] | | | | | [phone] | | | +--------+ + + + [...] + + + | Blood Pressure | 116/61 | 05/04/2018 4:43 PM | | | | | PDT | | + + + + + | Pulse | 72 | 05/04/2018 4:43 PM | | | | | PDT | | + + + + + | Temperature | 36.2 C (97.2 F) | 05/04/2018 4:43 PM | | | | | PDT | | + + + + + | Respiratory Rate | 20 | 05/04/2018 4:43 PM | | | | | PDT | | + + + + + | Oxygen Saturation | 98% | 05/04/2018 4:43 PM | | | | | PDT | | + + + + + | Inhaled Oxygen | - | - | | | Concentration | | | | + + + + + | Weight | 64.9 kg (143 lb 1.3 | 05/04/2018 9:53 AM | | | | oz) | PDT | | + + + + + | Height | 165.1 cm (5' 5") | 05/04/2018 9:53 AM | | | | | PDT | | + + + + + | Body Mass Index | 23.81 | 05/04/2018 9:53 AM | | | | | PDT [...] + + documented as of this encounter Discharge Instructions Instructions Antonio Bowen PA-C - 05/04/2018Discharge Instructions for Lumbar Surge ry You had a lumbar decompression surgery. During this procedure, your doctor unpinches some of your nerves in your spine. Here s what you need to know about home care following a spi nal decompression operation. Activity Arrange your household to keep the items you need within reach. Remove electrical cords, throw rugs, and anything else that may cause you to fall. Use a walkeror handrails until your balance, flexibility, and strength improve. And re member to ask for help from others when you need it. Free up your hands so that you can use them to keep balance. Use a kaylen pack, apron, or pockets to carry things. Be sure not to carry too much at once. Don t bend or twist at the waist, or raise your hands over your head for the first two weeks after your surgery. Don t lift anything heavier than 5 pounds for the first four weeks after surgery. Don t sit for more than30 to 45 minutes at a time. Take frequent short walks. They a re the sep[place] to your recovery. As your back feels better please gradually increase the distanc e you walk as discussed with your provider. Don t drive until your doctor says it s OK. And never drive while you are taking opi oid pain medication. Nap if you are tired, but don t stay in bed all day. Use chairs with arms. The arms make it easier for you to stand up and sit down. If you have not yet received instructions about physical therapy, ask your doctor about them. Incision care Check your incision daily for redness, tenderness, or drainage. Don t soak your wound in water (no hot tubs, bathtubs, swimming pools) until your doct or says it s OK. If you have steristrips in place (small thin tape dressing), these will wear off in 7-10 days. If they have not come off, please remove them on day 14 after surgery. Your wound does not need to be covered after the steristrips come off and it is recommen ded to get them wet and wash them with soap and water. Other home care Use nonslip bath mats, grab bars, an elevated toilet seat, and a shower chair in your ba throom. Take your medication exactly as directed. If you smoke, stop! This will be one of the most important things you can do to help you recover from surgery. A brace is uncommon but if you were prescribed one, wear your brace as directed by your doctor. We recommend taking over the counter medications for bowel function or use the prescribe d medication or both until your bowel function has returned to normal. Follow-up Most patients will be seen approximately 4 weeks after surgery unless you have sutures o r jyotsna in which case you will be seen in about 2 weeks. X-rays are not generally needed at these visits. You may get emails from [facility] about your clinical results for the next several years. Osbaldo neil complete this as it lets us know how you are doing and what we can do to help more. When to seek medical attention Call 911 right away if you have any of the following: Chest pain, shortness of breath, or n ew issues with your bowels or bladder that were not present previously. Otherwise call us for recommendations for any of the following: Fever with temperature of greater than 101.4 degrees Fahrenheit Increasing drainage, redness, or significant swelling of your incision or incisions Opening of the incision Major and prolonged increase in pain or numbness in the legs Worsening strength in your leg or legs When in Doubt There are a number of recommendations and guidance for your postoperative journey in the [facility] booklet that you were provided either in Spine Class or at the hosp ital. Please use it as a guide as you heal. The goal is to get you back to a life with les s pain, and we hope this will help you with that goal. documented in this encounter Medications at Time of Discharge [...] + + documented as of this encounter Progress Notes Melina Stevenson RN - 05/04/2018 6:30 PM PDTPatient tolerated dinner, denied nausea, wh eelchair escort out of facility. Electronically signed by Melina Stevenson RN at 8 6:42 PM PDTdocumented in this encounter H&P Notes Pérez Hilliard MD - 05/04/2018 10:01 AM PDTSURGICAL INTERIM HISTORY & PHYSICAL UPDATE Pt. Name/Age/: Fabio Fisher 43 y.o. 1975 Date of admission: 05/04/2018 The current H&P was reviewed. The patient was reexamined. Re-evaluation of the patient co nfirms the necessity for the scheduled procedure. No change has occurred in the patient s condition since the H&P was completed less than 30 days ago. VERIFICATION OF CONSENT (PARQ) The patient was counseled regarding the procedure, its indications, risks, potential compli cations and alternatives. Any questions were answered. Consent was obtained. Electronically signed by: Pérez Hilliard MD, 05/04/2018 10:01 [facility] uToni marr PA - 04/07/2018 9:30 AM PDT NEERAJ Martel [address], [address] [place], [place] [address] FAX: [phone] NEUROSURGERY FOLLOW-UP CHIEF COMPLAINT: Chief Complaint Patient presents with Pre-op Exam Lumbar HISTORY OF PRESENT ILLNESS: The patient is a 43 y.o. female with the complaint of right le g pain symptoms that began at least 6 years ago, but is worse since May 2017. Since lisa was last seen she describes that her symptoms have gotten much better. 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 She works at [employer]. She has 1-2 fl are ups a year for the last 6 years. Some of these flareups will take a couple of weeks to get better and some have taken 6 months or more. The symptoms have been unchanged. She rates [...] rest, massage, chiropractics, acupun cture, steroid injections. She has had no interval changes in the severity or character of her symptoms since her las visit. She denies any shortness of breath or chest pain. She denies any fever or chills. She has no open sores on her body and has not had any antibiotics recently. She lives with her fiance and her two children who can take care of her after surgery. PAST MEDICAL HISTORY: Past Medical History: Diagnosis Date Spinal stenosis PAST SURGICAL HISTORY: History reviewed. No pertinent surgical history. CURRENT MEDICATIONS: Current Outpatient Prescriptions Medication Sig Dispense Refill fluticasone (FLONASE) 50 mcg/nasal spray 1 spray by Nasal route Daily. No current facility-administered medications for this visit. [...] no rheumatoid arthritis. PHYSICAL EXAMINATION: Blood pressure 105/68, pulse 61, height 1.626 m (5' 4"), weight 61.2 [...] drainage. Oropharnyx: Clear without erythema. NECK (ANTERIOR): Supple. CHEST: Clear to ausculation. HEART: Regular rate and rhythm. ABDOMEN: Soft, non-tender, non-distended The patient is not obese. SPINE: There is no tenderness of there cervical or thoracic spine. The lumbar spine shows there is tenderness in the midline of the L5, S1 levels. To palpati on, there is no significant myofascial tenderness. There is no significant pain to provacative testing of the SI joint. There is no major deformity noted. EXTREMITIES: No cyanosis, clubbing, or edema. NEUROLOGICAL EXAM: MENTAL STATUS: The patient is awake, alert, and oriented. She follows simple and complex commands. Her speech is fluent, she comprehends speech well, and she repeats well. She has no apparent deficits with short or terminal makeup operator memory. CRANIAL NERVES: II: Acuity is intact. [...] Indicates pain limited MUSCLE/ MOVEMENT: RIGHT LEFT Hip Flexion 5 5 Hip Extension 5 5 Knee Flexion 5 5 Knee Extension 5 5 Dorsiflexion 5 5 Extensor Hallicus Longus 5 5 Plantarflexion 4+ 5 SENSORY EXAM: Sensory exam shows right S1-type dysesthesia. REFLEXES: (2 OR 2+ IS NORMAL) REFLEX: RIGHT LEFT PATELLAR 2+ 2+ ACHILLES 1+ 2+ GAIT: Gait is steady. PERIPHERAL NERVE/MISC: Straight leg raise is positive on the [...] late ral recess stenosis at that level. The Lumbar MRI from 02/20/2018 shows very slight improvement but overall there is still a ju y large bulge in the right lateral recess of L5-S1 obliterating the traversing S1 nerve. Lumbar x-rays show no major instability. ASSESSMENT: NEUROSURGICAL DIAGNOSES: Encounter Diagnoses Name Primary? Pre-op exam Yes Lumbar radiculopathy Lumbar disc herniation GENERAL DIAGNOSES: Past Medical History: Diagnosis Date Spinal stenosis PLAN: Fabio Fisher presented today, and it [...] provide her with the best possible outcome. I, Toni Garibay PA-C, personally performed the services described in this documentati on, as scribed by DAVID Spear, in my presence, and it is both accurate and comple te. Toni Garibay PA-C 04/07/18 ELECTRONICALLY SIGNED BY: NEERAJ Martel, 04/07/2018 10:17 I saw Fabio Fisher today with Toni. I answered all her questions about discectomy. She is ready to schedule this due to failing to truly improve for more than 6 years with co nservative care. Pérez Hilliard MD do cumented in this encounter Miscellaneous Notes Plan of Care - Melina Stevenson RN - 05/04/2018 5:17 PM PDTProblem: Patient Care Overvi ew (Adult) Goal: Care Team Goals & Evaluation PROBLEM-RELATED GOALS: Patient will be free from falls/injury throughout admission until discharge on 05/05/18 Patient pain will be <4/10 by time of discharge on 05/05/18 Patient will be from infection at surgical site by time of discharge on 05/05/18 STRATEGY TO ACHIEVE GOALS: Ambulate into hallway with nursing staff at least three times a day and be up in chair for all meals. Routinely round on patient and ensure safety parameters are in place Routinely assess patients pain and implement non-pharmacological/pharmacological interventi ons as appropriate Assess patients surgical site for any signs of infection and education patient on wound car e after discharge and signs to monitor. Outcome: Improving Goal Evaluation: Patient alert and oriented, free from falls/injury, calls appropriately to make needs know n. Large bandaid to lower back CDI - small hematoma noted to incision area - noted down in r ecovery room and informed of during report from LYDIA Dick. CMS intact, HRR, lung sounds clear /diminished. Patient tolerating food without nausea, is able to void, cleared by PT/OT, educ ated on signs of infection, wound care, and when to follow up with surgeon. AVS printed and given to patient, discharge instructions reviewed, oxycodone prescription given to patient a nd her significant other to go and get filled. All questions answered. Patient going to eat dinner prior to discharge, belongings reviewed, and patient will received a wheelchair ride from room upon discharge. lan of Care - Linda Nunez MSW - 05/04/2018 4:56 PM PDTProblem: Discharge Planning Goal: Patient will be discharged in a safe manner Outcome: Improving This outsole caser spoke with PT who states that patient needs resources on a shower chair. This CM provided patient with a [employer] flyer and explained to her how it works. She plans on stopping by there tomorrow. She was thankful for the information and has no further needs. Electronically signed by: VADIM Rae 05/04/2018 16:56 lan of Care - Adalid Jaquez OT - 05/04/2018 3:35 PM PDTProblem: Patient Care Overview (Adult) Goal: Care Team Goals & Evaluation PROBLEM-RELATED GOALS: STRATEGY TO ACHIEVE GOALS: RESTRAINT-RELATED GOALS: STRATEGIES TO ACHIEVE RESTRAINT GOALS: Occupational Therapy Plan of Care Screen Note Summary: Fabio screened for occupational therapy needs by physical therapy following minim ally invasive laminectomy and discectomy. Per PT report, patient demonstrating safe manageme nt of basic functional mobility and basic ADL functioning. Fabio did not demonstrate benson nued need for skilled OT at this time, discharge OT. Previous Level of Function: Transferring: independent Ambulation: independent Toileting: independent Bathing: independent Dressing: independent Eating: independent Communication: understands/communicates without difficulty Swallowin-->swallows foods/liquids without difficulty Equipment Currently Used at Home: none Potential available assistance at discharge: Living Environment/Accessibility: Lives With: significant other Living Arrangements: house Home Accessibility: bed and bath on same level Number of Stairs to Enter Home: 2 Number of Stairs Within Home: 0 Financial Concerns: none Transportation Available: none Electronically signed by: Adalid Campos OT, 05/04/2018 15:33 lan of Care - Willow Pan, PT - 05/04/2018 3:30 PM PDTFormatting of this note might be different from th e original. Problem: Patient Care Overview (Adult) Goal: Care Team Goals & Evaluation PROBLEM-RELATED GOALS: STRATEGY TO ACHIEVE GOALS: Ambulate into hallway with nursing staff at least three times a day and be up in chair for all meals. RESTRAINT-RELATED GOALS: STRATEGIES TO ACHIEVE RESTRAINT GOALS: [facility] Physical Therapy OPIB Plan of Care Patient Name: Fabio Fisher Date of Onset of Illness/Injury or Date of Surgery: 05/04/18 Start of Care/Start of Certification Date: 05/04/18 End of Certification Date: 05/04/18 Summary: Fabio presents to physical therapy for mobility assessment following Minimally invasive L5 right laminotomy, L5-S1 microdiscectomy with microsurgical technique, fluorosco py and operating microscopy. Objective exam reveals impairments with gait, locomotion, and balance. Fabio was able to demonstrate safe basic functional mobility at this time. She w as able to preform LB dressing and toileting independently without cues. She and her SO ask ed appropriate questions regarding home discharge. Fabio has shown adequate progress toward s goals and is to discharge PT at this time. Fabio is encouraged to ambulate into hallway with nursing staff and be up in chair for all meals. Screen for OT needs completed, did not demonstrate needs for OT at this time, OTR notified. The patient and boyfirend educated on spinal precautions: A Grade precaution, minimize over head lifting, minimize bending at the spine, minimize lifting more than 5 pounds, minimize t wisting, no sitting greater than 45 minutes without movement break. Precaution Comment: Lumbar Grade A bracing Previous Level of Function: Transferring: independent Ambulation: independent Toileting: independent Bathing: independent Dressing: independent Eating: independent Communication: understands/communicates without difficulty Swallowin-->swallows foods/liquids without difficulty Equipment Currently Used at Home: none Prior Functional Level Comment: independent, working at the [employer] Potential available assistance at discharge: Living Environment/Accessibility: Lives With: significant other Living Arrangements: house Home Accessibility: bed and bath on same level Number of Stairs to Enter Home: 2 Number of Stairs Within Home: 0 Financial Concerns: none Transportation Available: none Patient/Family s Goals: Be able to go home in the next hour Rehabilitation potential: good, to achieve stated therapy goals Identified Problems Needing Skilled Intervention: mobility assessment following Minimally i nvasive L5 right laminotomy, L5-S1 microdiscectomy with microsurgical technique, fluoroscopy and operating microscopy, gait, locomotion, and balance Physical Therapy Discharge Recommendations are: Recommended discharge disposition: home with assist Post discharge physical therapy recommendation: no further PT Equipment Recommendations: tub bench Planned Interventions: bed mobility training, gait training, patient/family education, str engthening, stair training, transfer training Recommended Frequency: evaluation only Patient Status/Goals: Reflects last filed data and may be from multiple contributors. Bed Mobility Supine to Sit, Level of [place]: modified independent Sit to Supine, Level of [place]: modified independent Transfers Sit-Stand, Level of [place]: modified independent Stand-Sit, Level of [place]: modified independent Gait Level of [place]: modified independent Assistive Device: none Distance (feet): 550 Stairs SO present for training, supervision d/t line management and pt report of feeling "like I'v e had a couple drinks" Number of Stairs: 4 Level of [place]: supervised Assistive Device: 1 rail Technique Used: step over step (ascending), step over step (descending) Balance Sitting Balance: Static: good balance Sitting Balance: Dynamic: good balance Standing Balance: Static: good balance Standing Balance: Dynamic: good balance Functional Endurance good; c/o minimal increased surgical pain with activity ROM ROM Testing Results: no range of motion deficits identified Strength Strength Testing Results: no strength deficits were identified [facility] BASIC MOBILITY [facility] BASIC MOBILITY Turning over in bed: no assistance required Sitting down /standing up from arm chair: no assistance required Moving from supine to sitting on edge of bed: no assistance required Moving to and from a bed to a chair : independent or modified independent/no help Walking in hospital room: independent or modified independent/no help Climbing 3-5 steps with a railing: min assist, CGA, SBA, Supervision/a little help TOTAL - [facility] BASIC MOBILITY : 23 Completed the [facility] Activity Measure for Post Acute Care (AM-PAC) "6 Clicks" [facility] Mobility Inpatient Short Form. This version of the AM-PAC is an assessment tool used to measure a person's level of disability in performing basic mobility tasks. This patient's score indicates a performance of 11.2% impairment in the functioning of basic mobility. Raw Score - Functional Limitation % (for [facility]) - "Severity Modifier" CN 6 - 100.00 CM 7 - 92.36 8 - 86.62 9 - 81.38 CL 10 - 76.75 11 - 72.57 12 - 68.66 13 - 64.91 14 - 61.29 CK 15 - 57.70 16 - 54.16 17 - 50.57 18 - 46.58 19 - 41.77 CJ 20 - 35.83 21 - 28.97 22 - 20.91 CI 23 - 11.2 CH 24 - 0.00 Predicted Discharge During Acute Hospitalization (Raw Score) Home = 20.1 With assist = 17.9 SNF = 14 IRF = 13.6 LTAC = 11.5 [facility] Daily Activity [facility] DAILY ACTIVITY Putting on /taking off LE Clothing: independent or modified independent/no help Bathing (washing, rinsing, drying): independent or modified independent/no help (clinical j udgement) Toileting (toilet, bedpan or urinal): independent or modified independent/no help Putting on / taking off UE clothing: independent or modified independent/no help Taking care of personal grooming : independent or modified independent/no help Eating meals: independent or modified independent/no help TOTAL - [facility] DAILY ACTIVITY : 24 Completed the [facility] Activity Measure for Post Acute Care (AM-PAC) "6 Clicks" [facility] Activity Inpatient Short Form. This version of the AM-PAC is an assessment tool used to measure a person's level of disability in performing functional daily tasks. This patient' s score indicates a performance of 0% impairment in the functioning of basic daily activiti es. Raw Score - Functional Limitation % (for [facility]) - "Severity Modifier" CN 6 - 100.00 CM 7 - 92.44 8 - 85.69 CL 9 - 79.59 10 - 74.70 11 - 70.42 12 - 66.57 13 - 63.03 CK 14 - 59.67 15 - 56.46 16 - 53.32 17 - 50.11 18 - 46.65 19 - 42.80 CJ 20 - 38.32 21 - 32.79 22 - 25.80 CI 23 - 15.86 CH 24 - 0.00 PT Goal Review Date Most Recent Value STG Review Date 05/04/18 at 05/04/2018 1530 Additional Goal #1 PT Most Recent Value STG Status new, met at 05/04/2018 1530 STG Fabio to participate in PT evaluation at 05/04/2018 1530 Medicare Functional Limitation Reporting: PT G-Codes Functional Assessment Tool Used: [facility] Basic Mobility Score: 11.2 Functional Limitation: Mobility: Walking and moving around Mobility: Walking and Moving Around Current Status (G8978): At least 1 percent but less gwendolyn n 20 percent impaired, limited or restricted Mobility: Walking and Moving Around Goal Status (G8979): At least 1 percent but less than 2 0 percent impaired, limited or restricted Mobility: Walking and Moving Around Discharge Status (G8980): At least 1 percent but less t camilo 20 percent impaired, limited or restricted PT Time Calculation Individual Start Time: 1505 Individual Stop Time: 1530 Individual Total Time: 25 Missed Treatment Time: 0 PT Total Treatment Time: 25 Timed TX Code Minutes: 10 Electronically signed by: Willow Langston PT, 05/04/2018 15:41 p Note - Pérez Hilliard MD - 05/04/2018 12:15 PM PDTFormatting of this note might be different from the or iginal. Operative Note Fabio Fisher 43 y.o. female 1975 [id number] Proc. Date 05/04/2018 Preop Dx Lumbar disc herniation with radiculopathy Postop Dx same Procedure Minimally invasive L5 right laminotomy, L5-S1 microdiscectomy with microsurgical technique, fluoroscopy and operating microscopy Anesthesia General Surgeon Pérez Hilliard MD - Primary Learning Manager NEERAJ Barba-C EBL 9 Findings L5-S1 disc herniation with acute and calcified components. Complications none Specimens * No specimens in log * Drains none Operative Details: After obtaining consent, the patient was taken to the operating room and placed under gener al anesthesia. She was then positioned in a prone position on the Aditya axis table with he r face, neck, chest and extremities positioned and padded appropriately. Her back was prepp ed and draped in standard fashion and a timeout was performed. All members of the surgical t eam agreed with the timeout. Fluoroscopy was then used to localize the level of L5-S1 on lateral fluoroscopy, and then a skin incision was made approximately 2 cm in length, approximately 1.5 cm off the midline i n a paramedian fashion on the right side. Subcutaneous tissues were made hemostatic with Bov ie cautery. A METRx tube was then docked down on the L5 lamina. Bovie cautery was used to expose the lamina. High-speed drill was used drill down to the ligamentum flavum. Using th e microscope for microsurgical dissection, the ligament was carefully removed with a Kerriso n rongeur followed by exploration of the lateral recess. The disc herniation was then ident ified as was the S1 root. It was fairly inflamed in its appearance. The disc fragments wer e then removed with a hook and pituitary rongeur noting calcified and acute components to th e herniated fragments. The area was explored and no additional compression was noted for th e S1 root or the thecal sac. Hemostasis was obtained and then depo-medrol was placed epidur ally. The retractor was removed. The fascia was then closed with 0 Vicryl sutures, followed by closure of the skin with two layers of 2-0 Quill-type sutures. Then 20 mL of 0.5% Marcaine with epinephrine was infiltrat ed in the back followed by closure of the skin with skin glue. The wound was dressed with st eristrips and a Band-Aid. All counts were reported as correct. The patient tolerated the procedure and was transferr ed to the recovery room in stable condition. Electronically signed by: Pérez Hilliard MD 05/04/2018 12:13 [facility] rief Op Note - Jesús Hilliard MD - 05/04/2018 12:13 PM PDTFormatting of this note might be different from the origin al. Brief Operative Note Fabio Fisher 43 y.o. female 1975 [id number] Proc. Date 05/04/2018 Preop Dx Lumbar disc herniation with radiculopathy Postop Dx same Procedure Minimally invasive L5 right laminotomy, L5-S1 microdiscectomy with microsurgical technique, fluoroscopy and operating microscopy Anesthesia General Surgeon Pérez Hilliard MD - Primary Learning Manager Antonio Bowen PA-C EBL 9 Findings L5-S1 disc herniation with acute and calcified components. Complications none Specimens * No specimens in log * Drains none Electronically signed by: Pérez Hilliard MD 05/04/2018 12:13 [facility] Pérez Hilliard MD at 018 12:15 PM PDTdocumented in this encounter Plan of Treatment Not on filedocumented as of this encounter Procedures + +--------+ + + + | Procedure Name | Priori | Date/Time | Associated Diagnosis | Comments | | | ty | | | | + +--------+ + + + | POC GLUCOSE | Routin | 05/04/2018 | | Results for this | | | e | 1:06 PM | | procedure are in the | | | | PDT | | results section. | + +--------+ + + + | FL RAUL STATS NO | Routin | 05/04/2018 | | Results for this | | CHARGE | e | 12:06 PM | | procedure are in the | | | | PDT | | results section. | + +--------+ + + + | LAMINECTOMY | | 05/04/2018 | Ruptured lumbar | | | MINIMALLY INVASIVE | | 10:50 AM | disc (M51.26) | | | | | PDT | | | + +--------+ + + + +---+--------+ | | Case | | | Notes | | | | | | Instru | | | ments: | | | | | | c-arm, | | | | | | drill, | | | | | | micros | | | belle, | | | metrxB | | | iologi | | | cs: | | | noneIm | | | plants | | | : | | | noneTa | | | ble: | | | Jackso | | | n Palmer | | | | | | buggy operator | | | ep: | | | none | +---+--------+ | | | | | Specia | | | l | | | Needs | | | | | | Instru | | | ments: | | | | | | c-arm, | | | | | | drill, | | | | | | micros | | | belle, | | | metrxB | | | iologi | | | cs: | | | noneIm | | | plants | | | : | | | noneTa | | | ble: | | | Jackso | | | n Palmer | | | | | | buggy operator | | | ep: | | | none | +---+--------+ + +--------+ +---+ + | CULTURE, MRSA | Routin | 05/04/2018 | | Results for this | | | e | 10:33 AM | | procedure are in the | | | | PDT | | results section. | + +--------+ +---+ + | POCT TEST, | Routin | 05/04/2018 | | Results for this | | URINE, QUAL | e | 10:15 AM | | procedure are in the | | | | PDT | | results section. | + +--------+ +---+ + documented in this encounter Results POC Glucose (05/04/2018 1:06 PM PDT) + +-------+ + + + | Component | Value | Ref Range | Performed | Pathologist | | | | | At | Signature | + +-------+ + + + | Glucose, | 98 | 70 - 109 mg/dL | [facility] | | | POC | | | [facility] | | | | [facility] | | | | | [facility] - | | | | | | LABORATORY | | + +-------+ + + + + + | Specimen | + + | Blood | + + + + + + + | Performing | Address | City/State/Zipcode | Phone Number | | Organization | | | | + + + + + | [facility] | [address] | [place] | [phone] | | [facility] | | [address] | | | - LABORATORY | | | | + + + + + [place] Issac-Beto Stats No Charge (05/04/2018 12:06 PM PDT) [...] | | | + +---------+ + + Culture, MRSA (05/04/2018 10:33 AM PDT) + + + + + + | Component | Value | Ref Range | Performed | Pathologist | | | | | At | Signature | + + + + + + | Culture | Negative for MRSA by | | [facility] | | | | chromogenic agar method | | [facility] | | | | | | [facility] | | | | | | [facility] - | | | | | | LABORATORY | | + + + + + + + + | Specimen | + + | Tissue - Both | | anterior nares (body | | structure) | + + + + + + + | Performing | Address | City/State/Zipcode | Phone Number | | Organization | | | | + + + + + | [facility] | [address] | [place] | [phone] | | [facility] | | [address] | | | - LABORATORY | | | | + + + + + POCT Test, Urine, QUAL (05/04/2018 10:15 AM PDT) + + + + + + | Component | Value | Ref Range | Performed | Pathologist | | | | | At | Signature | + + + + + + | | Negative | Negative | | | | Test, | | | | | | Urine, POC | | | | | + + + + + + | Internal QC | Acceptable | Acceptable | | | + + + + + + | Specific | | 1.010, 1.015, | | | | [place], | | 1.020, 1.025 | | | | POC | | | | | + + + + + + | Lot Number | [id number] | | | | + + + + + + | Expiration | 2019-08-31 | | | | | Date | | | | | + + + + + + + + | Specimen | + + | Urine | + + documented in this encounter Visit Diagnoses + + | Diagnosis | + + | Ruptured lumbar disc - Primary Displacement of lumbar intervertebral disc without | | myelopathy | + + documented in this encounter Administered Medications + +--------+ + +------+------+ | Medication Order | MAR | Action | Dose | Rate | Site | | | Action | Date | | | | + +--------+ + +------+------+ | acetaminophen (TYLENOL) tablet | Given | 05/04/20 | 1,000 mg | | | | 1,000 mg 1,000 mg, Oral, ONCE, | | 18 10:36 | | | | | 05/04/18 at 1030, For 1 dose, | | AM PDT | | | | | Pre-op | | | | | | + +--------+ + +------+------+ + +---+ | | | + +---+ | diphenhydrAMINE (BENADRYL) 12.5 | | | mg/5 mL liquid 25 mg 25 mg, | | | Oral, EVERY 4 HOURS PRN, Itching, | | | Starting 8/13/18 at 1347, | | | Oral route is preferred., | | | Post-op/Phase II | | + +---+ | | | + +---+ | diphenhydrAMINE (BENADRYL) | | | injection 12.5 mg 12.5 mg, | | | Intravenous, EVERY 4 HOURS PRN, | | | Itching, Starting 05/04/18 at | | | 1347, Oral route is preferred., | | | Post-op/Phase II | | + +---+ | | | + +---+ | diphenhydrAMINE (BENADRYL) | | | tablet 25 mg 25 mg, Oral, EVERY | | | 4 HOURS PRN, Itching, Starting | | | 05/04/18 at 1347, Oral route | | | is preferred., Post-op/Phase II | | + +---+ | | | + +---+ + +-------+ +--------+---+---+ | docusate sodium (COLACE) | Given | 05/04/20 | 100 mg | | | | capsule 100 mg 100 mg, Oral, 2 | | 18 2:16 | | | | | TIMES DAILY, First dose on Mon | | PM PDT | | | | | 05/04/18 at 1415, First line agent | | | | | | | for constipation, Post-op/Phase | | | | | | | II | | | | | | + +-------+ +--------+---+---+ +---+---+ | | | +---+---+ + +-------+ +--------+---+---+ | gabapentin (NEURONTIN) capsule | Given | 05/04/20 | 600 mg | | | | 600 mg 600 mg, Oral, ONCE, Fri | | 18 10:36 | | | | | 05/04/18 at 1030, For 1 dose, | | AM PDT | | | | | Pre-op | | | | | | + [...] | | +---+---+ + +-------+ +--------+---+---+ | lactulose liquid 30 mL 30 mL, | Given | 05/04/20 | 30 mLs | | | | Oral, 2 TIMES DAILY, First dose | | 18 2:16 | | | | | on Fri05/04/18 at 1415, If | | PM PDT | | | | | docusate, senna, and polyethylene | | | | | | | glycol ineffective x 24 hours or | | | | | | | not ordered, Post-op/Phase II | | | | | | + +-------+ +--------+---+---+ +---+---+ | | | +---+---+ + +-------+ +------+---+---+ | ondansetron (ZOFRAN ODT) | Given | 05/04/20 | 8 mg | | | | disintegrating tablet 8 mg 8 mg, | | 18 10:37 | | | | | Oral, ONCE, 05/04/18 at 1030, | | AM PDT | | | | | For 1 dose, Pre-op | | | | | | + +-------+ +------+---+---+ +---+---+ | | | +---+---+ + +-------+ +------+---+---+ | oxyCODONE (ROXICODONE) tablet | Given | 05/04/20 | 5 mg | | | | 5-10 mg 5-10 mg, Oral, EVERY 3 | | 18 6:13 | | | | | HOURS PRN, Pain, Starting Mon | | PM PDT | | | | | 05/04/18 at 1347, First dose must | | | | | | | be the lowest dose, can titrate | | | | | | | to effective dose by repeat of | | | | | | | lowest dose every 60 minutes prn | | | | | | | pain, may not exceed maximum dose | | | | | | | ordered per interval. Use Pasero | | | | | | | Sedation Scale., Post-op/Phase | | | | | | | II | | | | | | + +-------+ +------+---+---+ + +---+ | | | + +---+ | scopolamine (TRANSDERM-SCOP) 1 | | | mg/3 days 1 patch 1 patch, | | | Transdermal, EVERY 72 HOURS, | | | First dose on 05/04/18 at | | | 1045, Each patch is designed to | | | deliver 1 mg over 3 days. DO NOT | | | CUT patch., | | + +---+ | | | + +---+ documented in this encounter
--- OUTSIDE RECORDS SUMMARY | ~2020-05-02 | XMS | Encounter Summary ---
Demographics + + + | Address | [address] | | | [place] [address] | + + + | Home Phone | | + + + | Preferred Language | Unknown | + + + | Marital Status | | + + + | Methodist Affiliation | 1013 | + + + | Race | Unknown | + + + | Ethnic Group | Unknown | + + + Author + + + | Author | [facility] | | | and [place] | + + + | Organization | [facility] | | | and [...] [place] | | | | | [address] | | + + + + + | Chey Hein | ECON | [place] | | | | | [address] | | + + + + + Care Team Providers + +------+ + | Care Image Scientist Name | Role | Phone | + +------+ + | Iraida Loredo | PCP | | | PA-C | | | + +------+ + Encounter Details +--------+ + + + + | Date | Type | Department | Care Team | Description | +--------+ + + + + | 02/27/ | Imaging | [facility] | Provider, | | | 2018 | Exam | [facility] | MD [address] | | | | | IMAGING [address] | [address] | | | | | [address] | [place] [address] | | | | | [place] [address] | | | | | | [phone] | | | +--------+ + + + [...] | + +--------+ + + + | MRI LUMBAR SPINE WO | Routin | 02/20/2018 | | Results for this | | CONTRAST | e | 9:15 AM | | procedure are in the | | | | PDT | | results section. | + +--------+ + + + documented in this encounter Results MRI Lumbar Spine wo Contrast (02/20/2018 9:15 AM PDT) + + | Specimen | + + | | + + + + + | Narrative | Performed At | + + + | External films for comparison only | [facility] | | | | | No results will be in the chart. | | + + + + +---------+ + + | Performing | Address | City/State/Zipcode | Phone Number | | Organization | | | | + +---------+ + + | [facility] | | | | + +---------+ + + documented in this encounter Visit Diagnoses Not on filedocumented in this encounter"
--- OUTSIDE RECORDS SUMMARY | ~2020-05-02 | XMS | Encounter Summary ---
Demographics + + + | Address | [address] | | | [place] [address] | + + + | Home Phone | | + + + | Preferred Language | Unknown | + + + | Marital Status | | + + + | Mandaen Affiliation | 1013 | + + + | Race | Unknown | + + + | Ethnic Group | Unknown | + + + Author + + + | Author | [facility] | | | and [place] | + + + | Organization | [facility] | | | and [...] [place] | | | | | [address] | | + + + + + | Chey Hein | ECON | [place] | | | | | [address] | | + + + + + Care Team Providers + +------+ + | Care Program Proposals Coordinator Name | Role | Phone | + +------+ + PCP | Unavailable | + +------+ + Reason for Visit Diagnostic/Screening (Routine) +--------+--------+ + + + + | Status | Reason | Specialty | Diagnoses / | Referred By | Referred To | | | | | Procedures | Contact | Contact | +--------+--------+ + + + + | Closed | | Radiology | Procedures | Provider, | | | | | | MRI Lumbar | Historical, | | | | | | Spine wo | MD Causey | | | | | | Contrast | [address] | | | | | | | [place] | | | | | | | [address] | | +--------+--------+ + + + + Encounter Details +--------+ + + + + | Date | Type | Department | Care Team | Description | +--------+ + + + + | 10/08/ | Imaging | [facility] | Jared, | | | 2017 | Exam | [facility] | MD Padilla Tian | | | | | IMAGING [address] | | | | | [address] [place] | [place] [address] | | | | | [place] [address] | | | | | | [phone] | | | +--------+ + + + + Social History + +-------+ +--------+------+ | Tobacco Use | Types | Packs/Day | Years | Date | | | | | Used | | + +-------+ +--------+------+ | Never Assessed | | | | | + +-------+ +--------+------+ + + + | Sex Assigned at [...] MRI LUMBAR SPINE WO | Routin | 08/01/2017 | | Results for this | | CONTRAST | e | 10:10 AM | | procedure are in the | | | | PST | | results section. | + +--------+ + + + documented in this encounter Results MRI Lumbar Spine wo Contrast (08/01/2017 10:10 AM PST) + + | Specimen | + + | | + + + + + | Narrative | Performed At | + + + | External films | [facility] | | for comparison only - no result from [facility]. | | + + + + +---------+ + + | Performing | Address | City/State/Zipcode | Phone Number | | Organization | | | | + +---------+ + + | [facility] | | | | + +---------+ + + documented in this encounter Visit Diagnoses Not on filedocumented in this encounter"
--- OUTSIDE RECORDS SUMMARY | ~2020-05-02 | XMS | Encounter Summary ---
Demographics + + + | Address | [address] | | | [place] [address] | + + + | Home Phone | | + + + | Preferred Language | Unknown | + + + | Marital Status | | + + + | Christian Affiliation | 1013 | + + + | Race | Unknown | + + + | Ethnic Group | Unknown | + + + Author + + + | Author | [facility] | | | and [place] | + + + | Organization | [facility] | | | and [...] [place] | | | | | [address] | | + + + + + | Chey Hein | ECON | [place] | | | | | [address] | | + + + + + Care Team Providers + +------+ + | Care Cook Fish Eggs Name | Role | Phone | + +------+ + | Iraida Loredo | PCP | | | PA-C | | | + +------+ + Encounter Details +--------+ + + + + | Date | Type | Department | Care Team | Description | +--------+ + + + + | 01/06/ | Abstract | [facility] [place] | Provider, | Ruptured lumbar disc | | 2018 | | NEUROSURGERY [address] | [address] | | | | | [address] | [address] | | | | | [place] | [place] [address] | | | | | [address] | | | | | | [phone] | | | +--------+ + + + [...] | + + | Ruptured lumbar disc Displacement of lumbar intervertebral disc without myelopathy | + + documented in this encounter"
--- OUTSIDE RECORDS SUMMARY | ~2020-05-02 | XMS | Encounter Summary ---
Demographics + + + | Address | [address] | | | [place] [address] | + + + | Home Phone | | + + + | Preferred Language | Unknown | + + + | Marital Status | | + + + | Protestant Affiliation | 1013 | + + + | Race | Unknown | + + + | Ethnic Group | Unknown | + + + Author + + + | Author | [facility] | | | and [place] | + + + | Organization | [facility] | | [...] [place] | | | | | [address] | | + + + + + | Chey Hein | ECON | [place] | | | | | [address] | | + + + + + Care Team Providers + +------+ + | Care Crabber Name | Role | Phone | + +------+ + | Iraida Loredo | PCP | | | PA-C | | | + +------+ + Reason for Visit +---------+--------+ + | Reason | Onset | Comments | | | Date | | +---------+--------+ + | Post Op | 05/07/ | PO call | | | 2017 | | +---------+--------+ + Encounter Details +--------+ + + + + | Date | Type | Department | Care Team | Description | +--------+ + + + + | 05/07/ | Telephone | [facility] | Pérez Hilliard MD | Post Op (PO call) | | 2017 | | NEUROSURGERY [address] | [address] | | | | | [address] | [place] [address] | | | | | [place] | [phone] | | | | | [address] | | | | | | [phone] | | | +--------+ + + + [...] this encounter Miscellaneous Notes Telephone Encounter - Christine Gary RN - 05/07/2018 10:56 AM PDTProcedure: L5 right lami notomy, L5-S1 microdiscectomy Date of Surgery: 05/04/2018 Date of Discharge: 05/04/2018 1. How are you feeling-if pain where (legs/surgical site)? Doing pretty good, feeling pre tty well, been up moving around ok. 2. Weakness/Numbness (New onset)? No, didn't really experience that to much before the mckinney rgery and none since. 3. Taking pain meds (Name/Dosage)? Taking oxycodone one 10mg tablet every 4-5 hours if ne eded, if the pain is still to much after about an hour of taking first tab taking 1 more tab . Taking the cyclobenzaprine 1 tablet before bed if having having muscle spasm, doesn't like taking it during the day because it makes her tired. 4. Constipation? No, Last BM 05/07/18 Loss of Bowel or Bladder (When/Chronic)? Slow stream, hesistancy encouraged fluid intake, frequent ambulation. Advised her this can be normal due to inflamm ation, if doesn't resolve and she is still concerned in a few days to give us a call. 5. Ambulating (How often)? Moving often, at least 1-2 minutes every 45 minutes if not more . Has performed some light duties as helping with preparing meals, but stay with everything with in waist to shoulder level. SURGICAL ISSUES 1. Steri-strips/outer bandages: intact. Operative note reviewed yes. [place]/sutures that need to be removed no. Advised ok to remove outer dressings and leave uncovered even for showers at this time; Rem ove any remaining steri strips at 2 weeks PO 2. Appearance of the site? Has not checked yet, but will have her boyfriend check when he returns home from work. Has noticed outer bruising has gone down around outsides of bandage. Is there drainage from the site? no. Advised to continue to monitor expected changes daily and have wound check if any increased redness, swelling, heat, pain, drainage or edges not healing well together. Advised what ty pes of drainage to look for, and signs of infection, increased pain, swelling. 3. Do you have a fever? no. Discussed PO atelectasis. Advised patient to continue frequent use of IS; increase fluid i ntake; encouraged frequent ambulation; deep breathing/ coughing, splinting abd with pillow a s needed to clear throat/lungs. 4. Follow up appointments? 4 wk PO 1:00 (Lani PICKARD); check in 12:30; 12 wk PO 11:00 (Babak URBAN) check in 10:30 5. Is there anything we could have done to make this experience easier or better for you an d your family? "No I think to me I had more of a horrible experience before the surgery, trying to get s cheduled and long wait time when trying to be scheduled. Once I was scheduled for surgery ev erything went great, the hospital staff was amazing and things went very smoothly." Patient asked for information on who she could contact to write a letter to concerning the review b oard process. Gave her the driveway sealer information and address. 6. Have any of the symptoms you were experiencing before surgery improved or resolved? She stated she was in a lot of pain for about a year but a few weeks leading up to the surg kirill she was not having any symptoms, and hasn't noticed a big difference at this time. 7. Did you attend Spine Class or view Spine Class video prior to surgery? (yes/ no; if yes , class or video?) Yes, "it was definitely helpful." All questions answered at this time. Encouraged patient to call with any questions or conc erns. Patient declined offer to activate [employer] at this time. documented in this enc ounter Plan of Treatment Not on filedocumented as of this encounter Visit Diagnoses Not on filedocumented in this encounter
--- OUTSIDE RECORDS SUMMARY | ~2020-05-02 | XMS | Encounter Summary ---
Demographics + + + | Address | [address] [facility] [address] | | | [place] [address] | + + + | Home Phone | | + + + | Preferred Language | Unknown | + + + | Marital Status | | + + + | Buddhism Affiliation | 1013 | + + + | Race | Unknown | + + + | Ethnic Group | Unknown | + + + Author + + + | Author | [facility] | | | and [place] | + + + | Organization | [facility] | | | [...] [place] | | | | | [address] | | + + + + + | Chey Hein | ECON | CHANGE MANAGEMENT ADMINISTR[place] | | | | | [address] | | + + + + + Care Team Providers + +------+ + | Care Induction Machine Setter Name | Role | Phone | + +------+ + | Iraida Loredo | PCP | | | PA-C | | | + +------+ + Reason for Visit + + + | Reason | Comments | + + + | Pre-op Exam | Lumbar | + + + Follow Up (Routine) +--------+--------+ + + + + | Status | Reason | Specialty | Diagnoses / | Referred By | Referred To | | | | | Procedures | Contact | Contact | +--------+--------+ + + + + | Closed | | Neurosurgery | Diagnoses | Pérez Hilliard | Pérez Hilliard | | | | | Lumbar disc | MD [address] | MD [address] | | | | | herniation | [address] | | | | | Lumbar | [place], | [place], [place] | | | | | radiculopath | [place] [address] | [address] | | | | | y Chronic | Phone: | Phone: | | | | | midline low | [phone] | [phone] | | | | | back pain | Fax: | Fax: | | | | | with | [phone] | [phone] | | | | | right-sided | | | | | | | sciatica | | | | | | | Adilson PICKARD | | | | | | | visit SYNC | | | | | | | DR LEYDI SALAZAR | | | | | | | FILE | | | | | | | Procedures | | | | | | | OFFICE VISIT | | | | | | | EXTENDED | | | +--------+--------+ + + + + Encounter Details +--------+---------+ + + + | Date | Type | Department | Care Team | Description | +--------+---------+ + + + | 04/07/ | Office | [facility] | Pérez Hilliard MD | Pre-op exam (Primary | | 2018 | Visit | NEUR[address]URGERY [address] | [address] | Dx); Lumbar | | | | [address] | [place] [address] | radiculopathy; | | | | [place] | [phone] | Lumbar disc | | | | [address] | | herniation; Stenosis | | | | [phone] | Toni Garibay, | of lateral recess | | | | | PA-C [address] | of lumbar spine; | | | | | [address] [place] | Sciatica of left | | | | | [place] [address] | side | | | | | [phone] | | | | | | | | +--------+---------+ + + + Social History [...] + + + | Blood Pressure | 105/68 | 04/07/2018 9:51 AM | | | | | PDT | | + + + + + | Pulse | 61 | 04/07/2018 9:51 AM | | | | | PDT [...] Weight | 61.2 kg (135 lb) | 04/07/2018 9:51 AM | | | | | PDT | | + + + + + | Height | 162.6 cm (5' 4") | 04/07/2018 9:51 AM | | | | | PDT | | + + + + + | Body Mass Index | 23.17 | 04/07/2018 9:51 AM | | | | | PDT | | + + + + + documented in this encounter Patient Instructions Patient Instructions Tiffanie Cantrell, Health Club Manager - 04/07/2018 9:30 AM PDTIt was a pleasure to see you today. Here is what we discussed. If you do need a refill on pain medications or muscle relaxers after you get home please ma ke sure to give us plenty of notice so that we have time to mail the prescription to you. esha phone number is [phone]. You can also contact your primary care provider to see if ana would be willing to prescribe your pain medications and muscle relaxer's. If you do work this out with your primary care provider please let us know. If anything in your health status changes between now and surgery please let us know. Please remember not to take any anti-inflammatories within 7 days of surgery. This includes ibuprofen, Motrin, Advil, aspirin, naproxen, and Aleve. You may have a small glass of water on the morning of surgery to take your normal morning m edications. Otherwise, nothing to eat or drink after midnight. If you do choose back surgery it would look something like this: -1-2 days in the hospital depending on the time of your surgery, spend the first month lift ing no more than 5lbs, no bending, lifting above your head, or twisting. -We will want you to be up and walking very frequently. For the first 10-14 days we want yo u to be up every 45 minutes for 1-2 minutes in your house. After 10-14 days when you are fee ling comfortable you can walk outside with a walking partner. -No intercourse for the first month. -No driving for the first few weeks to 1 month as long as you have your strength back and a re not taking pain medication then you could drive. -You would need help with things like tying your shoes, getting socks on and what not to pr event you from bending over for that first month at least. -Lastly, if you have any questions, please feel free to give our office a call. Otherwise, we will see you on the morning of surgery. documented in this encounter Progress Notes Toni Garibay PA - 04/07/2018 9:30 AM PDTFormatting of this note might be different f rom the original. NEERAJ Martel [address] [facility], [address] [place] [address] FAX: [phone] NEUROSURGERY FOLLOW-UP CHIEF COMPLAINT: Chief Complaint Patient presents with Pre-op Exam Lumbar HISTORY OF PRESENT ILLNESS: The patient is a 43 y.o. female with the complaint of right le g pain symptoms that began at least 6 years ago, but is worse since May 2017. Since axel gonzalez was last seen she describes that her symptoms have gotten much better. 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 She works at [employer]. She has 1-2 fl are ups a [...] character of her symptoms since her las t visit. She denies any shortness of breath [...] has no apparent deficits with short or keno terminal operator memory. CRANIAL NERVES: II: Acuity is [...] Hilliard MD do cumented in this encounter Plan of Treatment Not on filedocumented as of this encounter Visit Diagnoses + + | Diagnosis | + + | Pre-op exam - Primary Preoperative examination, unspecified | + + | Lumbar radiculopathy Thoracic or lumbosacral neuritis or radiculitis, unspecified | + + | Lumbar disc herniation Displacement of lumbar intervertebral disc without myelopathy | + + | Stenosis of lateral recess of lumbar spine Spinal stenosis, lumbar region, without | | neurogenic claudication | + + | Sciatica of left side Sciatica | + + documented in this encounter
--- OUTSIDE RECORDS SUMMARY | ~2020-05-02 | XMS | Encounter Summary ---
Demographics + + + | Address | [address] [facility] [address] | | | [place] [address] | + + + | Home Phone | | + + + | Preferred Language | Unknown | + + + | Marital Status | | + + + | Amish Affiliation | 1013 | + + + | Race | Unknown | + + + | Ethnic Group | Unknown | + + + Author + + + | Author | [facility] | | | and [place] | + + + | Organization | [facility] | | | and [...] [place] | | | | | [address] | | + + + + + | Chey Hein | ECON | [place] | | | | | [address] | | + + + + + Care Team Providers + +------+ + | Care Die Mechanic Name | Role | Phone | + +------+ + | Iraida Loredo | PCP | | | PA-C | | | + +------+ + Encounter Details +--------+ + + + + | Date | Type | Department | Care Team | Description | +--------+ + + + + | 10/22/ | Orders Only | [facility] [place] | Antonio Bowen | Back pain, | | 2018 | | NEUROSURGERY [address] | [address] | unspecified back | | | | [address] [place], [place] | location, | | | | [place], [place] | [address] | unspecified back | | | | [address] | | pain laterality, | | | | [phone] | | unspecified | | | | | | chronicity (Primary | | | | | | Dx) | +--------+ + + + + Social [...] Not on filedocumented as of this encounter Results XR Lumbar Spine 4 + Vw (01/07/2018 8:22 AM PDT) + + | Specimen | + + | | + + + + + | Narrative | Performed At | + + + | CLINICAL INFORMATION: Back pain. COMPARISON: MRI dated | [facility] | | 08/01/2017 and radiographs 07/21/2017. FINDINGS: AP and | | | lateral views of the lumbosacral spine including lateral flexion and | | | extension views. Number of lumbar-type vertebrae: 5 | | | Alignment: Normal. No listhesis. No abnormal translation with | | | flexion or extension. Vertebral bodies: Normal in height. No | | | vertebral fracture. Disk spaces and facet joints: Mild/moderate | | | disc height loss at L5-S1. Soft tissues: Normal. | | | IMPRESSION - Mild to moderate degenerative disc disease at L5-S1. | | | Dictated and Signed by: Jose Gary MD Electronically signed: | | | 01/07/2018 10:05 AM | | + + + + + | Procedure Note | + + | Rojas, Rad Results In - 01/07/2018 10:08 AM PDT | | CLINICAL INFORMATION: Back pain. | | | | COMPARISON: MRI dated 08/01/2017 and radiographs 07/21/2017. | | | | FINDINGS: | | AP and lateral views of the lumbosacral spine including lateral flexion and | | extension views. | | | | Number of lumbar-type vertebrae: 5 | | | | Alignment: Normal. No listhesis. No abnormal translation with flexion or | | extension. | | | | Vertebral bodies: Normal in height. No vertebral fracture. | | | | Disk spaces and facet joints: Mild/moderate disc height loss at L5-S1. | | | | Soft tissues: Normal. | | | | | | IMPRESSION - Mild to moderate degenerative disc disease at L5-S1. | | | | Dictated and Signed by: Jose Gary MD | | Electronically signed: 01/07/2018 10:05 AM | + + + +---------+ + + | Performing | Address | City/State/Zipcode | Phone Number | | Organization | | | | + +---------+ + + | [facility] | | | | + +---------+ + + documented in this encounter Visit Diagnoses + + | Diagnosis | + + | Back pain, unspecified back location, unspecified back pain laterality, unspecified | | chronicity - Primary | + + documented in this encounter"
--- OUTSIDE RECORDS SUMMARY | ~2020-05-02 | XMS | Encounter Summary ---
Demographics + + + | Address | [address] [facility] [address] | | | [place] [address] | + + + | Home Phone | | + + + | Preferred Language | Unknown | + + + | Marital Status | | + + + | Episcopalian Affiliation | 1013 | + + + | Race | Unknown | + + + | Ethnic Group | Unknown | + + + Author + + + | Author | [facility] | | | and [place] | + + + | Organization | [facility] | | | and [...] [place] | | | | | [address] | | + + + + + | Chey Hein | ECON | [place] | | | | | [address] | | + + + + + Care Team Providers + +------+ + | Care Oil And Gas Specialist Name | Role | Phone | + +------+ + | Iraida Loredo | PCP | | | PA-C | | | + +------+ + Reason for Visit + + + | Reason | Comments | + + + | Pre-op Exam | Right L5-S1 Microdiscectomy | + + + Follow Up (Routine) +--------+--------+ + + + + | Status | Reason | Specialty | Diagnoses / | Referred By | Referred To | | | | | Procedures | Contact | Contact | +--------+--------+ + + + + | Closed | | Neurosurgery | Diagnoses | Brayan, | Brayan, | | | | | Preop: | Dillon Mckeon DO | Dillon Mckeon DO | | | | | Right L5-S1 | [address] | [address] | | | | | Microdiscect | [address] | | | | | robin on | [place], [place] | [place] | | | | | 03/11/18 | [address] | [address] Phone: | | | | | Procedures | Phone: | [phone] | | | | | PRE OP | [phone] | Fax: | | | | | | Fax: | [phone] | | | | | | [phone] | | +--------+--------+ + + + + Encounter Details +--------+---------+ + + + | Date | Type | Department | Care Team | Description | +--------+---------+ + + + | 02/11/ | Office | [facility] [place] | Tati Ash | Lumbar radiculopathy | | 2018 | Visit | NEUR[address]UR[address] | [address] | (Primary Dx); | | | | [address] | [facility] | Lumbar disc | | | | [place], [place] | [address] [place] | herniation | | | | [address] | [address] | | | | | [phone] | | | +--------+---------+ + + + [...] + + + | Blood Pressure | 112/67 | 02/11/2018 9:49 AM | | | | | PDT | | + + + + + | Pulse | 56 | 02/11/2018 9:49 AM | | | | | PDT [...] + + + + | Weight | 63 kg (138 lb 12.8 | 02/11/2018 9:49 AM | | | | oz) | PDT | | + + + + + | Height | 162.6 cm (5' 4") | 02/11/2018 9:49 AM | | | | | PDT | | + + + + + | Body Mass Index | 23.82 | 02/11/2018 9:49 AM | | | | | PDT | | + + + + + documented in this encounter Patient Instructions Patient Instructions Tati Ash PA-C - 02/11/2018 9:30 AM PDTPlease remember n ot to take any anti-inflammatories within 7 days of surgery. This includes ibuprofen, Motri n, Advil, aspirin, naproxen, and Aleve. You may have a small glass of water on the morning of surgery to take your normal morning medications. Otherwise, nothing to eat or drink afte r midnight. If you have any change in your health status, please call and let us know. Last ly, If you have any questions, please feel free to give our office a call. Otherwise, we wi ll see you on the morning of surgery. documented in this encounter Progress Notes Ines Hernández RN - 02/11/2018 9:30 AM PDTPatient in office for pre op appointment. Patient n ot currently taking any medications that need to be stopped prior to surgery. Patient advise d at this time to avoid NSAIDs 7 days prior to surgery. Patient verbalized understanding. Al l questions answered at this time. ati Ash PA- C - 02/11/2018 9:30 AM PDT Niurka Ash PA-C [address] [facility], [address] [place], [place] [address] FAX: [phone] NEUROSURGERY HISTORY AND PHYSICAL EXAMINATION CHIEF COMPLAINT: Chief Complaint Patient presents with Pre-op Exam Right L5-S1 Microdiscectomy HISTORY OF PRESENT ILLNESS: The patient is a 42 y.o. female with the complaint of right le g pain symptoms that began many years ago, but is worse since May 2017. 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 She works at [employer]. The symptoms have been unchanged. She rates [...] and has not had any antibiotics recently. The PCP will se e her February 23 for surgery clearance. PAST MEDICAL HISTORY: Past Medical History: Diagnosis [...] no rheumatoid arthritis. PHYSICAL EXAMINATION: Blood pressure 112/67, pulse 56, height 1.626 m (5' 4"), weight 63 kg (138 lb 12.8 oz). Bod y mass index is 23.82 kg/m. GENERAL: Fabio Fisher is in no [...] has no apparent deficits with short or retirement memory. CRANIAL NERVES: II: Acuity is intact. [...] Intrinsics 5 5 Ulnar Intrinsics 5 5 Equipment Manager Strength 5 5 Hip Flexion 5 5 [...] NEUROSURGICAL DIAGNOSES: Encounter Diagnoses Name Primary? Lumbar radiculopathy Yes Lumbar disc herniation GENERAL DIAGNOSES: Past Medical [...] surgery since the last MRI was from 2016, this is scheduled February 20. ELECTRONICALLY SIGNED BY: Niurka Ash PA-C, 02/11/2018 10:36 Lili [place], Timber Skidder - 9:30 AM PDTREVIEW OF SYSTEMS GENERALLY: No fever, no night [...] In addition, the patient has numbness/pain of legs, pain in back. PSYCHIATRIC: No depression, no sleep disorders, no [...] RHEUMATOLOGIC: No joint arthritis, no rheumatoid arthritis. document ed in this encounter Plan of Treatment Not on filedocumented as of this encounter Visit Diagnoses + + | Diagnosis | + + | Lumbar radiculopathy - Primary Thoracic or lumbosacral neuritis or radiculitis, | | unspecified | + + | Lumbar disc herniation Displacement of lumbar intervertebral disc without myelopathy | + + documented in this encounter
--- OUTSIDE RECORDS SUMMARY | ~2020-05-02 | XMS | Encounter Summary ---
Demographics + + + | Address | [address] [facility] [address] | | | [place] [address] | + + + | Home Phone | | + + + | Preferred Language | Unknown | + + + | Marital Status | | + + + | Temple Affiliation | 1013 | + + + | Race | Unknown | + + + | Ethnic Group | Unknown | + + + Author + + + | Author | [facility] | | | and [place] | + + + | Organization | [facility] | | | [...] [place] | | | | | [address] | | + + + + + | Chey Hein | ECON | [place] | | | | | [address] | | + + + + + Care Team Providers + +------+ + | Care Landscape Gardener Name | Role | Phone | + +------+ + | Iraida Loredo | PCP | | | PA-C | | | + +------+ + Reason for Visit +--------+--------+ + | Reason | Onset | Comments | | | Date | | +--------+--------+ + | Other | 03/16/ | | | | 2017 | | +--------+--------+ + Encounter Details +--------+ + + + + | Date | Type | Department | Care Team | Description | +--------+ + + + + | 03/16/ | Telephone | [facility] | Dillon Schmidt, | Other | | 2017 | | NEUR[address]UR[address]ERY [address] | DO [address] | | | | | [address] [facility] [address] | [address] [place], [place] | | | | | [place], [place] | [address] | | | | | [address] | | | | | | [phone] | | | +--------+ + + + [...] this encounter Miscellaneous Notes Telephone Encounter - Suze Aragon Cert MA - 03/16/2018 12:00 PM PDTI spoke with Fabio barrientos after she called with some questions. She wondered what would have to be redone with esha corona to her pre operative studies, pre op visits etc. That were cancelled due to Dr. Ubaldo balbuena being out of the office and unable to do her surgery. I advised that the pre op visit its elf would need to be re-done. The EKG that she did which was the only thing we needed prior to surgery will be good for 6 months. She was questioning if her MRI would need to be re-d one because Dr. Schmidt "told her that he needed it done as close to surgery as possible". I let her know that I could not tell her if this would need to be done again, that we would h ave to ask him when he returned. She did state that she would be very upset if she would bolaños ve to pay for another MRI due to our cancellation. I let her know that I would be calling h er to re-schedule and assured her that I am keeping track of everyone who have been affected by this. She seemed reassured after me telling her this. She voiced her frustrations that she was previously scheduled with Dr Hilliard, was cancelled upon checking in for her visit with him and then told days later that "he was no longer seeing patients". She feels it was yogesh te a coincidence that this has happened a second time now in the same office. I advised gwendolyn t this was not deliberate or done on purpose and that unfortunately it was unexpected and is personal. She understands. 12 :13 PM PDTdocumented in this encounter Plan of Treatment Not on filedocumented as of this encounter Visit Diagnoses Not on filedocumented in this encounter
--- OUTSIDE RECORDS SUMMARY | ~2020-05-02 | XMS | Encounter Summary ---
Demographics + + + | Address | [address] [facility] [address] | | | [place] [address] | + + + | Home Phone | | + + + | Preferred Language | Unknown | + + + | Marital Status | | + + + | Mandaeism Affiliation | 1013 | + + + | Race | Unknown | + + + | Ethnic Group | Unknown | + + + Author + + + | Author | [facility] | | | and [place] | + + + | Organization | [facility] | | | [...] [place] | | | | | [address] | | + + + + + | Chey Hein | ECON | [place] | | | | | [address] | | + + + + + Care Team Providers + +------+ + | Care Delicatessen Slicer Name | Role | Phone | + +------+ + | Iraida Loredo | PCP | | | PA-C | | | + +------+ + Encounter Details +--------+ + + + + | Date | Type | Department | Care Team | Description | +--------+ + + + + | 01/15/ | Orders Only | [facility] [place] | Dillon Schmidt, | Displacement of | | 2017 | | NEUROSUR[address]ERY [address] | DO [address] | lumbar | | | | [address] | [address] [place], [place] | intervertebral disc | | | | [place], [place] | [address] | without myelopathy | | | | [address] | | (Primary Dx) | | | | [phone] | | | +--------+ + + + [...] + | Diagnosis | + + | Displacement of lumbar intervertebral disc without myelopathy - Primary | + + documented in this encounter"
--- OUTSIDE RECORDS SUMMARY | ~2020-05-02 | XMS | Encounter Summary ---
Demographics + + + | Address | [address] [facility] [address] | | | [place] [address] | + + + | Home Phone | | + + + | Preferred Language | Unknown | + + + | Marital Status | | + + + | Baptist Affiliation | 1013 | + + + | Race | Unknown | + + + | Ethnic Group | Unknown | + + + Author + + + | Author | [facility] | | | and [place] | + + + | Organization | [facility] | | [...] [place] | | | | | [address] | | + + + + + | Chey Hein | ECON | [place] | | | | | [address] | | + + + + + Care Team Providers + +------+ + | Care Coin Machine Collector Name | Role | Phone | + +------+ + | Iraida Loredo | PCP | | | PA-C | | | + +------+ + Encounter Details +--------+ + + + + | Date | Type | Department | Care Team | Description | +--------+ + + + + | 01/23/ | Orders Only | [facility] [place] | Dillon Schmidt, | Displacement of | | 2017 | | NEUROSUR[address]ERY [address] | DO [address] | lumbar | | | | [address] | [address] [place], [place] | intervertebral disc | | | | [place], [place] | [address] | without myelopathy | | | | [address] | | (Primary Dx); Lumbar | | | | [phone] | | radiculopathy; | | | | | | Acute back pain with | | | | | | sciatica, right | +--------+ + + + + Social [...] without myelopathy - Primary | + + | Lumbar radiculopathy Thoracic or lumbosacral neuritis or radiculitis, unspecified | + + | Acute back pain with sciatica, right | + + documented in this encounter"
--- OUTSIDE RECORDS SUMMARY | ~2020-05-02 | XMS | Encounter Summary ---
Demographics + + + | Address | [address] [facility] [address] | | | [place] [address] | + + + | Home Phone | | + + + | Preferred Language | Unknown | + + + | Marital Status | | + + + | Hinduism Affiliation | 1013 | + + + | Race | Unknown | + + + | Ethnic Group | Unknown | + + + Author + + + | Author | [facility] | | | and [place] | + + + | Organization | [facility] | | | [...] [place] | | | | | [address] | | + + + + + | Chey Hein | ECON | [place] | | | | | [address] | | + + + + + Care Team Providers + +------+ + | Care Finishing Machine Tender Name | Role | Phone | + +------+ + | Iraida Loredo | PCP | | | PA-C | | | + +------+ + Reason for Visit + +--------+ + | Reason | Onset | Comments | | | Date | | + +--------+ + | Pre-op Question | 02/25/ | | | | 2018 | | + +--------+ + | Medication Question | 02/25/ | | | | 2017 | | + +--------+ + Encounter Details +--------+ + + + + | Date | Type | Department | Care Team | Description | +--------+ + + + + | 02/25/ | Telephone | [facility] | Dillon Schmidt, | Pre-op Question; | | 2018 | | NEUR[address]UR[address]ERY [address] | DO [address] | Medication Question | | | | [address] | [address] [place] | | | | | [place] | [address] | | | | | [address] | | | | | | [phone] | | | +--------+ + + + [...] this encounter Miscellaneous Notes Telephone Encounter - Isa Willams RN - 02/25/2018 2:11 PM PDTScheduled for Right L5- S1 Microdiscectomy on 03/11/2018 Patient called to report that she takes Flonase daily for allergies and forgot to mention i t at her appointment. Confirmed this is ok to continue taking. Medication added to current medication list documented in this encounter Plan of Treatment Not on filedocumented as of this encounter Visit Diagnoses Not on filedocumented in this encounter"
--- OUTSIDE RECORDS SUMMARY | ~2020-05-02 | XMS | Clinical Summary ---
Demographics + + + | Address | [address] [facility] [address] | | | [place] [address] | + + + | Home Phone | | + + + | Preferred Language | Unknown | + + + | Marital Status | | + + + | Sikh Affiliation | 1013 | + + + [...] [place] | | | | | [address] | | + + + + + | Chey Hein | ECON | [place] | | | | | [address] | | + + + + + Care Team Providers + +------+ + | Care Inspector Hot Forgings Name | Role | Phone | + +------+ + | Iraida Loredo | PCP | | | PA-C | | | + +------+ + Allergies + + + + + + | Active Allergy | Reactions | Severity | Noted | Comments | | | | | Date | | + + + + + + | Hydrocodone | Nausea And Vomiting | Medium | 01/24/20 | | | | | | 18 | | + + + + + + Medications + + + +---------+------+------+-------+ | Medication | Sig | Dispensed | Refills | Star | End | Statu | | | | | | t | Date | s | | | | | | Date | | | + + + +---------+------+------+-------+ | levonorgestrel | 1 Device by | | 0 | | | Activ | | (MIRENA, 52 MG,) 20 | Intrauterine route | | | | | e | | MCG/24HR IUD | once. | | | | | | + + + +---------+------+------+-------+ Active Problems + + + | Problem | Noted Date | + + + | S/P lumbar microdiscectomy | 06/01/2018 | + + + + + | Overview: For right leg symptoms on 05/04/2018 | + + + + + | Sciatica of right side without back pain | 06/01/2018 | + + + | Spinal stenosis | 05/03/2018 | + + + | Ruptured lumbar disc | 01/06/2018 | + + + Encounters +--------+ + + + + | Date | Type | Specialty | Care Team | Description | +--------+ + + + + | 05/01/ | Telephone | Neurosurgery | Toni Garibay, | Back Pain | | 2019 | | | PA-C | | +--------+ + + + + from Last 3 Months Family History + + +------+ + | Medical History | Relation | Name | Comments | + + +------+ + | Cancer | Maternal | | Leukemia | | | Grandfath | | | | | er | | | + + +------+ + | Emphysema | Paternal | | | | | Grandfath | | | | | er | | | + + +------+ + | Emphysema | Paternal | | | | | Grandmoth | | | | | er | | | + + +------+ + | Prostate cancer | Paternal | | | | | Uncle | | | + + +------+ + + +------+ + + | Relation | Name | Status | Comments | + +------+ + + | Maternal Grandfather | | | | | | | (Age | | | | | 78) | | + +------+ + + | Paternal Grandfather | | | | | | | (Age | | | | | 72) | | + +------+ + + | Paternal Grandmother | | | | | | | (Age | | | | | 75) | | + +------+ + + | Paternal Uncle | | Alive | | + +------+ + + Social History + +-------+ +--------+------+ [...] on file | | + + + Last Filed Vital Signs + + + [...] + + + + | Temperature | 36.9 C (98.4 F) | 05/21/2018 12:46 PM | | | | | PDT | | + + + + + | Respiratory Rate | 16 | 05/21/2018 12:46 PM | | | | | PDT [...] | | + + + + + Plan of Treatment + + +-------+ + | Health Maintenance | Due Date | Last | Comments | | | | Done | | + + +-------+ + | Hepatitis C | | | | | Screening | 7 | | | + + +-------+ + | Vaccine: | | | | | Dtap/Tdap/Td (1 - | 6 | | | | Tdap) | | | | + + +-------+ + | Cervical Cancer | | | | | Screening (Pap) | 7 | | | + + +-------+ + | Vaccine: Influenza | | | | | (#1) | 0 | | | + + +-------+ + Results Not on filefrom Last 3 Months Insurance +-------+--------+ +--------+-------+---------+------+ | Payer | Benefi | Subscriber | Effect | Phone | Address | Type | | | t Plan | ID | iván | | | | | | / | | Dates | | | | | | Group | | | | | | +-------+--------+ +--------+-------+---------+------+ | BCBS | BCBS | [id number] | 09/22/19 | | | PPO | | | [place] | | 16-Pre | | | | | | L FEP | | sent | | | | +-------+--------+ +--------+-------+---------+------+ + +--------+ +--------+ + + | Guarantor Name | Accoun | Relation to | Date | Phone | Billing Address | | | t Type | Patient | of | | | | | | | | | | + +--------+ +--------+ + + | Fabio Fisher | Person | Self | [birth year] | [address] | | | al/Fam | | 1974 | [phone] | [address] [place] | | | [place] | | | 6 (Home) | [id number] | | | | | | [phone] | | | | | | | 4 (Work) | | + +--------+ +--------+ + + Advance Directives + + + + + | Type | Date Recorded | Patient | Explanation | | | | Flexo Press Operator | | + + + + + | Power of | | | | | Template Storage Clerk | | | | + + + + + | Advance | 01/07/2018 8:05 | | | | Directive | AM | | | + + + + + + + + + + | Code Status | Date | Date | Comments | | | Activated | Inactivated | | + + + + + | Full Code | 05/04/2018 | 05/04/2018 | | | | 1:48 PM | 8:48 PM | | + + + + +
--- OUTSIDE RECORDS SUMMARY | ~2020-05-02 | XMS | Encounter Summary ---
Demographics + + + | Address | [address] [facility] [address] | | | [place] [address] | + + + | Home Phone | | + + + | Preferred Language | Unknown | + + + | Marital Status | | + + + | Moravian Affiliation | 1013 | + + + | Race | Unknown | + + + | Ethnic Group | Unknown | + + + Author + + + | Author | [facility] | | | and [place] | + + + | Organization | [facility] | | | [...] [place] | | | | | [address] | | + + + + + | Chey Hein | ECON | [place] | | | | | [address] | | + + + + + Care Team Providers + +------+ + | Care Registered Client Associate Name | Role | Phone | + +------+ + PCP | Unavailable | + +------+ + Encounter Details +--------+ + + + + | Date | Type | Department | Care Team | Description | +--------+ + + + + | 10/08/ | Imaging | ERICA ANNE | Provider, | | | 2018 | Exam | [facility] | MD [address] | | | | | IMAGING [address] | [address] | | | | | [address] [place] | [place] [address] | | | | | [place] [address] | | | | | | [phone] | | | +--------+ + + + [...] | + +--------+ + + + | XR HIP RIGHT 2-3 | Routin | 07/21/2017 | | Results for this | | VIEWS | e | 8:40 AM | | procedure are in the | | | | PDT | | results section. | + +--------+ + + + documented in this encounter Results XR Hip Right 2-3 Views (07/21/2017 8:40 AM PDT) + + | Specimen | + + | | + + + + + | Narrative | Performed At | + + + | External films | [facility] | | for comparison only - no result from [place]. | | + + + + +---------+ + + | Performing | Address | City/State/Zipcode | Phone Number | | Organization | | | | + +---------+ + + | [facility] | | | | + +---------+ + + documented in this encounter Visit Diagnoses Not on filedocumented in this encounter"
--- OUTSIDE RECORDS SUMMARY | ~2020-05-02 | XMS | Encounter Summary ---
Demographics + + + | Address | [address] [facility] [address] | | | [place] [address] | + + + | Home Phone | | + + + | Preferred Language | Unknown | + + + | Marital Status | | + + + | Yarsani Affiliation | 1013 | + + + [...] [place] | | | | | [address] | | + + + + + | Chey Hein | ECON | [place] | | | | | [address] | | + + + + + Care Team Providers + +------+ + | Care Mechanical Maintenance Engineer Name | Role | Phone | + +------+ + | Iraida Loredo | PCP | | | PA-C | | | + +------+ + Reason for Visit + +--------+ + | Reason | Onset | Comments | | | Date | | + +--------+ + | Appointment | 01/07/ | Canceled patients appointment | | | 2017 | | + +--------+ + Encounter Details +--------+ + + + + | Date | Type | Department | Care Team | Description | +--------+ + + + + | 01/07/ | Telephone | [facility] [place] | Pérez Hilliard MD | Appointment | | 2017 | | NEUR[address]URGERY [address] | [address] | (Canceled patients | | | | [address] | [place] [address] | appointment) | | | | [place] | [phone] | | | | | [address] | | | | | | [phone] | | | +--------+ + + + [...] this encounter Miscellaneous Notes Telephone Encounter - Linda Carr - 02/24/2018 3:21 PM PDTLATE ENTRY --- Patient rescheduled and became a Dr. Schmidt patient. elephone Encounter - Gypsy Meza - 01/07/2018 8:33 A M PDTPatient arrived to her appointment, I did have to let the patient know we are needing t o cancel due to a change in the schedule and we will call her to reschedule. Patient was ju y upset to say the least.. She was not happy about this at all.. I did give patient a gas ca rd and she was not happy at all. Patient did ask if it was going to be another 4 months befo re we see her again? I let patient know at this time I do not know where we will schedule yo u. documented in this encounter Plan of Treatment Not on filedocumented as of this encounter Visit Diagnoses Not on filedocumented in this encounter"
--- OUTSIDE RECORDS SUMMARY | ~2020-05-02 | XMS | Encounter Summary ---
Demographics + + + | Address | [address] [facility] [address] | | | [place] [address] | + + + | Home Phone | | + + + | Preferred Language | Unknown | + + + | Marital Status | | + + + | Temple Affiliation | 1013 | + + + | Race | Unknown | + + + | Ethnic Group | Unknown | + + + Author + + + | Author | [facility] | | | and [place] | + + + | Organization | [facility] | | | [...] [place] | | | | | [address] | | + + + + + | Chey Hein | ECON | [place] | | | | | [address] | | + + + + + Care Team Providers + +------+ + | Care Stone Finisher Name | Role | Phone | + +------+ + | Iraida Loredo | PCP | | | PA-C | | | + +------+ + Encounter Details +--------+ + + + + | Date | Type | Department | Care Team | Description | +--------+ + + + + | 01/16/ | Episode | [facility] [place] | Suze Aragon, | | | 2017 | Changes | NEUROSURGERY [address] | [place] | | | | | [address] | | | | | | [place] | | | | | | [address] | | | | | | [phone] | | | +--------+ + + + [...]
--- OUTSIDE RECORDS SUMMARY | ~2020-05-02 | XMS | Encounter Summary ---
Demographics + + + | Address | [address] [facility] [address] | | | [place] [address] | + + + | Home Phone | | + + + | Preferred Language | Unknown | + + + | Marital Status | | + + + | Denominational Affiliation | 1013 | + + + | Race | Unknown | + + + | Ethnic Group | Unknown | + + + Author + + + | Author | [facility] | | | and [place] | + + + | Organization | [facility] | [...] [place] | | | | | [address] | | + + + + + | Chey Hein | ECON | [place] | | | | | [address] | | + + + + + Care Team Providers + +------+ + | Care Catalyst Plant Supervisor Name | Role | Phone | + +------+ + | Iraida Loredo | PCP | | | PA-C | | | + +------+ + Reason for Visit + + + | Reason | Comments | + + + | Wound Check | | + + + Encounter Details +--------+---------+ + + + | Date | Type | Department | Care Team | Description | +--------+---------+ + + + | 05/21/ | Office | [facility] | Antonio Bowen | S/P lumbar | | 2018 | Visit | NEUR[address]URGERY [address] | [address] | microdiscectomy | | | | [address] | [address] [place], [place] | (Primary Dx) | | | | [place], [place] | [id number] | | | | | [address] | | | | | | [phone] | | | +--------+---------+ + + + [...] + + + | Blood Pressure | 130/83 | 05/21/2018 12:46 PM | | | | | PDT | | + + + + + | Pulse | 73 | 05/21/2018 12:46 PM | | | [...] + + + + | Weight | 62.5 kg (137 lb 12.6 | 05/21/2018 12:46 PM | | | | oz) | PDT | | + + + + + | Height | 165.1 cm (5' 5") | 05/21/2018 12:46 PM | | | | | PDT | | + + + + + | Body Mass Index | 22.93 | 05/21/2018 12:46 PM | | | [...] documented as of this encounter Progress Notes Antonio Bowen PA-C - 05/21/2018 12:45 PM PDTSubjective: Patient was in for a woun d check. Couple of days ago she noted a fairly rapid onset of swelling in the incision site of her low back. No fever or chills no drainage. Objective: Wound edges are intact there is swelling the size of a very large grape without erythema or warmth. No drainage Assessment/plan. No sign of infection at this time continue to monitor symptoms. We will have a phone call follow-up tomorrow. I did call an antibiotic to the patient's pharmacy to use over the long holiday weekend if she was to begin running any fever or chills or have a ny erythema or purulent drainage. If things seemed dramatically worsening she should go to the emergency room for further evaluation if the office is closed. Keflex 500 4 times a day 10 days if needed Antonio Melotronically signed by Antonio Bowen PA-C at 05/22/2018 7:51 A M Lili [place], Tire Assembler - 05/21/2018 12:45 PM PDTREVIEW OF SYSTEMS GENERALLY: No fever, no [...] Primary Other postprocedural status | + + documented in this encounter
--- OUTSIDE RECORDS SUMMARY | ~2020-05-02 | XMS | Encounter Summary ---
Demographics + + + | Address | [address] [facility] [address] | | | [place] [address] | + + + | Home Phone | | + + + | Preferred Language | Unknown | + + + | Marital Status | | + + + | Temple Affiliation | 1013 | + + + | Race | Unknown | + + + | Ethnic Group | Unknown | + + + Author + + + | Author | [facility] | | | and [place] | + + + | Organization | [facility] | [...] [place] | | | | | [address] | | + + + + + | Chey Hein | ECON | [place] | | | | | [address] | | + + + + + Care Team Providers + +------+ + | Care Web Developer Programmer Name | Role | Phone | + +------+ + PCP | Unavailable | + +------+ + Encounter Details +--------+ + + + + | Date | Type | Department | Care Team | Description | +--------+ + + + + | 08/13/ | Hospital | [facility] | Conversion | Diagnosis unknown | | 2017 | Encounter | CONVERSION [address] | Transaction, | | | | | [address] | Provider Unknown | | | | | [place], [place] | [phone] | | | | | [address] | | | | | | [phone] | | | +--------+ + + + [...] this | | CONTRAST | e | 1:12 PM | | procedure are in the | | | | PST | | results section. | + +--------+ + + + documented in this encounter Results MRI Lumbar Spine wo Contrast (08/01/2017 1:12 PM PST) + + | Specimen | + + | | + + + + + | Narrative | Performed At | + + + | This is a non-reportable procedure without a radiologist report and | | | is used for image storage only | | + + + + + | Procedure Note | + + | Phil Xie - 05/06/2019 10:45 AM PDT This is a non-reportable procedure | | without a radiologist report and isused for image storage only | + + documented in this encounter Visit Diagnoses + + | Diagnosis | + + | Diagnosis unknown Other unknown and unspecified cause of morbidity or mortality | + + documented in this encounter"
--- OUTSIDE RECORDS SUMMARY | ~2020-05-02 | XMS | Encounter Summary ---
Demographics + + + | Address | [address] [facility] [address] | | | [place] [address] | + + + | Home Phone | | + + + | Preferred Language | Unknown | + + + | Marital Status | | + + + | Hoahaoism Affiliation | 1013 | + + + | Race | Unknown | + + + | Ethnic Group | Unknown | + + + Author + + + | Author | [facility] | | | and [place] | + + + | Organization | [facility] | | [...] [place] | | | | | [address] | | + + + + + | Chey Hein | ECON | [place] | | | | | [address] | | + + + + + Care Team Providers + +------+ + | Care Fashion Styling Intern Name | Role | Phone | + +------+ + | Iraida Loredo | PCP | | | PA-C | | | + +------+ + Encounter Details +--------+ + + + + | Date | Type | Department | Care Team | Description | +--------+ + + + + | 01/14/ | Orders Only | [facility] | Dillon Schmidt, | Back pain, | | 2018 | | NEUROSUR[address]ERY [address] | DO [address] | unspecified back | | | | [address] | [address] [place], [place] | location, | | | | [place], [place] | [address] | unspecified back | | | | [address] | | pain laterality, | | | | [phone] | | unspecified | | | | [...]
--- OUTSIDE RECORDS SUMMARY | ~2020-05-02 | XMS | Encounter Summary ---
Demographics + + + | Address | [address] [facility] [address] | | | [place] [address] | + + + | Home Phone [...] [place] | | | | | [address] | | + + + + + | Chey Hein | ECON | [place] | | | | | [address] | | + + + + + Care Team Providers + +------+ + | Care Optomechanical Technician Name | Role | Phone | + +------+ + | Iraida Loredo | PCP | | | PA-C | | | + +------+ + Encounter Details +--------+ + + + + | Date | Type | Department | Care Team | Description | +--------+ + + + + | 01/07/ | Hospital | [facility] | Antonio Bowen | Back pain, | | 2018 | Encounter | MED CTR XRAY [address] | [address] | unspecified back | | | | [place] | [address] [place], [place] | location, | | | | [place] [address] | [id number] | unspecified back | | | | [phone] | | pain laterality, | | | | | | unspecified | | | | | | chronicity | +--------+ + + + + Social [...] at Time of Discharge + + + +---------+--------+ + | Medication | Sig | Dispensed | Refills | Start | End Date | | | | | | Date | | + + + +---------+--------+ + | gabapentin | Take 600 mg by mouth | | 0 | | | | (NEURONTIN) 600 MG | 3 times daily. | | | | 8 | | tablet | | | | | | + + + +---------+--------+ + documented as of this encounter Plan of Treatment Not on filedocumented as of this encounter Procedures + +--------+ + + + | Procedure Name | Priori | Date/Time | Associated Diagnosis | Comments | | | ty | | | | + +--------+ + + + | XR LUMBAR SPINE 4 + | Routin | 01/07/2018 | Back pain, | Results for this | | VW | e | 8:22 AM | unspecified back | procedure are in the | | | | PDT | location, | results section. | | | | | unspecified back | | | | | | pain laterality, | | | | | | unspecified | | | | | | chronicity | | + +--------+ + + + documented in this encounter Results XR Lumbar Spine 4 [...] back pain laterality, unspecified | | chronicity | + + documented in this encounter"
--- OUTSIDE RECORDS SUMMARY | ~2020-05-02 | XMS | Encounter Summary ---
Demographics + + + | Address | [address] [facility] [address] | | | [place] [address] | + + + | Home Phone | | + + + | Preferred Language | Unknown | + + + | Marital Status | | + + + | Yarsani Affiliation | 1013 | + + + | Race | Unknown | + + + | Ethnic Group | Unknown | + + + Author + + + | Author | [facility] | | | and [place] | + + + | Organization | [facility] | | | [...] [place], [place] | | | | | [address] | | + + + + + | Chey Hein | ECON | [place] | | | | | [address] | | + + + + + Care Team Providers + +------+ + | Care Bankruptcy Paralegal Name | Role | Phone | + +------+ + | Iraida Loredo | PCP | | | PA-C | | | + +------+ + Reason for Visit + +--------+ + | Reason | Onset | Comments | | | Date | | + +--------+ + | Post-op Question | 05/19/ | | | | 2017 | | + +--------+ + | Wound Check | 05/19/ | | | | 2017 | | + +--------+ + Encounter Details +--------+ + + + + | Date | Type | Department | Care Team | Description | +--------+ + + + + | 05/19/ | Telephone | [facility] [place] | Pérez Hilliard MD | Post-op Question; | | 2018 | | NEUROSURGERY [address] | [address] | Wound Check | | | | [address] | [place] [address] | | | | | [place] | [phone] | | | | | [address] | | | | | | [phone] | | | +--------+ + + + [...] this encounter Miscellaneous Notes Telephone Encounter - Broderick Luna - 05/20/2018 10:01 AM PDTCalled patient to follow up on possible wound check appt, had to leave message. elephone Encounter - Ias Willams RN - 05/19/2018 10:45 AM PDTDuring previous call, patient reported that her outer bandages and steri strips were stil l in place. The Bandaid had been changed once since discharge. Advised patient to remove o uter dressing and ok to remove steri strips at this time. Advised to keep clean and dry and monitor for expected healing or signs of infection. Patient called back after removing outer dressing (Bandaid) and reported concern that top o f incision is not closing up yet. Reported some mild redness, bruising in surrounding tiss ues, no drainage. Advised patient to have a wound check with local clinic or we can schedule a apprentice plumber check in our clinic today. Patient will see if local clinic can see her today and if not, she wi ll call to schedule wound check with neurosurgery RN. elephone Encounter - Isa Willams RN - 05/19/2018 8:2 0 AM PDTS/p 05/04/2018 L5-S1 Microdiscectomy Next appointment 06/01/2018 (Lani) Patient called to discuss concern with return of right leg pain similar to preop symptoms s chaitanya last . Patient has been quite active but careful to strictly follow postop pre cautions, avoiding bending, twisting, turning and lifting. Acknowledges she has been baking and has caught herself a few times lifting more than 5# but not as much as 10#. Patient expressed fear that she will re-herniate the disc or cause nerve damage. Reassured patient that flares of pain and symptoms are very common this soon after surgery and for months as she heals and changes activities. We discussed the healing process, infla mmation and nerve irritation at length. Reinforced importance of limiting activities to as tolerated, which may change day to day and she may only realize she has overdone activities hours later when at rest. Encouraged soothing measures and resting until flare resolves and then advancing more slowly as tolerated. 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 Her team is leaving all the easy work for her and will suppo rt her need to limit activities and take rest periods as needed. Suggested arranging a cot to be able to lay flat and rest every couple of hours and gradual ly build activity tolerance for best healing and to avoid flaring inflammation, nerve irrita tion and symptoms. Encouraged patient to call if symptoms worsen or become persistent and intolerable. We dis cussed emergent symptoms that require immediate ED evaluation. Encouraged patient to call w ith any questions or concerns. All questions answered at this time.Electronically signed by Isa Willams RN at 018 8:42 AM PDTdocumented in this encounter Plan of Treatment Not on filedocumented as of this encounter Visit Diagnoses Not on filedocumented in this encounter"
--- OUTSIDE RECORDS SUMMARY | ~2020-05-02 | XMS | Encounter Summary ---
Demographics + + + | Address | [address] [facility] [address] [address] | | | [place] [address] | + + + | Home Phone | | + + + | Preferred Language | Unknown | + + + | Marital Status | | + + + | Orthodox Affiliation | 1013 | + + + | Race | Unknown | + + + | Ethnic Group | Unknown | + + + Author + + + | Author | [facility] | | | and [place] | + + + | Organization | [facility] | | [...] [place] | | | | | [address] | | + + + + + | Chey Hein | ECON | [place] | | | | | [address] | | + + + + + Care Team Providers + +------+ + | Care Sleeve Setter Safety Stitch Name | Role | Phone | + +------+ + | Iraida Loredo | PCP | | | PA-C | | | + +------+ + Reason for Visit + +--------+ + | Reason | Onset | Comments | | | Date | | + +--------+ + | Surgery Appointment | 04/30/ | pre surgical check in time and instructions | | | 2017 | | + +--------+ + Encounter Details +--------+ + + + + | Date | Type | Department | Care Team | Description | +--------+ + + + + | 04/30/ | Telephone | [facility] | Pérez Hilliard MD | Surgery Appointment | | 2017 | | NEUROSURGERY [address] | [address] | (pre surgical check | | | | [address] | [place] [address] | in time and | | | | [place] | [phone] | instructions) | | | | [address] | | | | | | [phone] | | | +--------+ + + + [...] Encounter - Delia Granado Cert MA - 04/30/2018 1:58 PM PDTAll presurgical mert ck-in instructions given to patient. Surgery date: 05/04/18 Check-in Time: 945 (OR Schedule states procedure start time 1145) No solids or liquids after midnight the night before surgery. Follow the cleansing instructions provided beginning the night before surgery after you shawnee wer or bathe. No showering the morning of surgery. Please do not wear jewelry, contact lenses, nail latvian (on fingers or toes), or make-up to surgery check-in. If you have dentures, hearing aids, or glasses please bring the cases with you to check-in. Medications instructions: None, not taking any Surgical Admit Anticipated Disposition reviewed and correct: "Yes Confirmation of procedure/approval: "Yes". PCP contacted to confirm patient cleared to proceed: I confirmed with patient that she has not been seen in the ED or had any recent surgeries since she last saw our providers. ". Confirm local pharmacy: [facility] documented in th is encounter Plan of Treatment Not on filedocumented as of this encounter Visit Diagnoses Not on filedocumented in this encounter
--- OUTSIDE RECORDS SUMMARY | ~2020-05-02 | XMS | Encounter Summary ---
Demographics + + + | Address | [address] [facility] [address] | | | [place] [address] | + + + | Home Phone | | + + + | Preferred Language | Unknown | + + + | Marital Status | | + + + | Amish Affiliation | 1013 | + + + | Race | Unknown | + + + | Ethnic Group | Unknown | + + + Author + + + | Author | [facility] | | | and [place] | + + + | Organization | [facility] | | | [...] [place] | | | | | [address] | | + + + + + | Chey Hein | ECON | [place] | | | | | [address] | | + + + + + Care Team Providers + +------+ + | Care Broadcast Producer Name | Role | Phone | + +------+ + | Iraida Loredo | PCP | | | PA-C | | | + +------+ + Reason for Visit + +--------+ + | Reason | Onset | Comments | | | Date | | + +--------+ + | Back Pain | 05/01/ | | | | 2019 | | + +--------+ + Encounter Details +--------+ + + + + | Date | Type | Department | Care Team | Description | +--------+ + + + + | 05/01/ | Telephone | [facility] [place] | Toni Garibay, | Back Pain | | 2019 | | NEUROSURGERY [address] | PA-C [address] | | | | | [address] | [address] [place] | | | | | [place], [place] | [place] [address] | | | | | [address] | [phone] | | | | | [phone] | | | +--------+ + + + [...] this encounter Miscellaneous Notes Telephone Encounter - Rhoda Rodriguez RN - 05/01/2020 11:02 AM PDTLOV: 06/01/28 05/04/2018 (Yam) L5-S1 Microdiscectomy She called in and has complaints of pain starting Friday. She said she had pain in her lo wer back. She said she sneezed the pain shot down her right leg. She is now having numbnes s on right leg down to her foot. She denies any bowel or bladder dysfunction or saddle anest hesia. She said her right leg is weaker but mostly due to pain. She has been able to walk ar ound the house. She has been using water bottles under her upper legs to help with pain but thinks maybe it caused the numbness from having the pressure to her leg. She said the numbne ss is mostly in the lateral aspect. She did call and get an appointment with her PCP tomorro w, but she wasn't in today. We asked for a new referral for the new provider. She is going t o request that they order imaging to speed up the process. I advised that if her symptoms ra pidly worsen, she would need to go to the ED for emergent evaluation. She verbalized underst anding and will keep our office updated on her status. documented in this encounter Plan of Treatment Not on filedocumented as of this encounter Visit Diagnoses Not on filedocumented in this encounter"
--- OUTSIDE RECORDS SUMMARY | ~2020-05-02 | XMS | Encounter Summary ---
Demographics + + + | Address | [address] [facility] [address] | | | [place] [address] | + + + | Home Phone | | + + + | Preferred Language | Unknown | + + + | Marital Status | | + + + | Jew Affiliation | 1013 | + + + | Race | Unknown | + + + | Ethnic Group | Unknown | + + + Author + + + | Author | [facility] | | | and [place] | + + + | Organization | [facility] | | | [...] [place] | | | | | [address] | | + + + + + | Chey Hein | ECON | [place] | | | | | [address] | | + + + + + Care Team Providers + +------+ + | Care Interlocker Name | Role | Phone | + +------+ + | Iraida Loredo | PCP | | | PA-C | | | + +------+ + Reason for Visit + +--------+ + | Reason | Onset | Comments | | | Date | | + +--------+ + | Surgery Appointment | 04/23/ | | | | 2017 | | + +--------+ + Encounter Details +--------+ + + + + | Date | Type | Department | Care Team | Description | +--------+ + + + + | 04/23/ | Telephone | [facility] | Pérez Hilliard MD | Surgery Appointment | | 2017 | | NEUROSURGERY [address] | [address] [place] [address] | | | | | [address] [facility] [address] | [place] [address] | | | | | [place] | [phone] | | | | | [address] | | | | | | [phone] | | | +--------+ + + + [...] this encounter Miscellaneous Notes Telephone Encounter - Brandi Robins, Strip Tank Tender - 04/28/2018 3:17 PM PDTNoted. O maxxlook has been updated and new DOS sent to the OR Via the Case Request. We will call on 04/30 to confirm her check-in time for surgery on Friday 05/04 elephone Encounter - Nehemias Carr - 04/28/2018 2:55 PM PDTAndrea called back and would like the 05/04 appointment for surgery. If you have any questions, please call patient at . Fabio is at work and might not be able to answer. If so, please leave a message. elephone Encounter - Brandi Robins, Medical Assyvonne avila - 04/27/2018 4:03 PM PDTCalled patient and let her know that I can offer surgery for Friday 05/04 or Sunday 05/06. She would like to discuss tonight with her to see if he can get either date off of work and will plan to contact us tomorrow with the DOS she wo uld like to take. Added HOLD appointments on [facility] calendar for 04/30, 05/04, and 05/04Electr onically signed by Brandi Robins Strip Tank Tender at 04/27/2018 4:23 PM PDTTelephone Wai Santiago - 04/27/2018 3:32 PM PDTPatient called in again. She may not be abl e to do . Is there any appts next week that she could have. elephone Encounter - Brandi Robins, Medical Assyvonne avila - 04/27/2018 2:06 PM PDTPatient called in to inquire as to why her surgery needed to be rescheduled. I updated patient of the new requirement for every Neurosurgery case to go to Peer Review. We discussed general details, and I informed the patient she will be reviewed this coming W April 29. She is clearly very frustrated, explaining that she was originally sche duled with Dr. Hilliard for her procedure, then rescheduled with Dr. Schmidt, now back again to Dr Lux Hilliard. She is extremely upset that we cannot promise that she will be cleared to proceed af ter being reviewed on Friday. She would like our office and admin to be aware of the str ess and difficulty we have placed on her shoulders with rescheduling with such little notice . At her request, patient's call was transferred to Nory Meza for feedback on this new pr ocess e lephone Encounter - Wai Willams - 04/27/2018 1:35 PM PDTPatient called the office againEl ectronically signed by Wai Willams at 04/27/2018 1:36 PM PDTTelephone Radha - Osbaldo Willams - 04/27/2018 1:03 PM PDTPatient called office again looking to take with a surgery sc heduler elephone Radha - Wai Willams - 04/27/2018 11:42 AM PDTPatient called in wanting to get her surgery re mi eduled. Please call her ZEFERION. She will be calling back every 30 minutes until someone call s her elephone Encounter - Chey Camarena - 04/27/2018 8:50 AM PDTPatient called regarding rescheduling her surgery date. Patient would like a call back. elephone Encounter - Brandi Robins, Strip Tank Tender - 04/23/2018 11:21 AM PDTCalled and and left detailed message, asking if she would be able to change her surgery d ate from Saturday 04/28 to 04/30. We will wait for her return call to confirm this raya sherman work d ocumented in this encounter Plan of Treatment Not on filedocumented as of this encounter Visit Diagnoses Not on filedocumented in this encounter"
--- OUTSIDE RECORDS SUMMARY | ~2020-05-02 | XMS | Encounter Summary ---
Demographics + + + | Address | [address] [facility] [address] | | | [place] [address] | + + + | Home Phone | | + + + | Preferred Language | Unknown | + + + | Marital Status | | + + + | Christianity Affiliation | 1013 | + + + | Race | Unknown | + + + | Ethnic Group | Unknown | + + + Author + + + | Author | [facility] | | | and [place] | + + + | Organization | [facility] | | [...] [place] | | | | | [address] | | + + + + + | Chey Hein | ECON | [place] | | | | | [address] | | + + + + + Care Team Providers + +------+ + | Care School Library Media Program Director Name | Role | Phone | + +------+ + | Iraida Loredo | PCP | | | PA-C | | | + +------+ + Encounter Details +--------+ + + + + | Date | Type | Department | Care Team | Description | +--------+ + + + + | // | Episode | [facility] [place] | Suze Aragon, | | | 2017 | Changes | NEUROSURGERY [address] | Cert [place] | | | | | [address] | | | | | | [place] | | | | | | [address] | | | | | | [phone] | | | +--------+ + + + [...]
--- OUTSIDE RECORDS SUMMARY | ~2020-05-02 | XMS | Encounter Summary ---
Demographics + + + | Address | [address] [facility] [address] | | | [place] [address] | + + + | Home Phone [...] [place] | | | | | [address] | | + + + + + | Chey Hein | ECON | [place] | | | | | [address] | | + + + + + Care Team Providers + +------+ + | Care Administrative Support Manager Name | Role | Phone | + +------+ + | Iraida Loredo | PCP | | | PA-C | | | + +------+ + Encounter Details +--------+ + + + + | Date | Type | Department | Care Team | Description | +--------+ + + + + | 02/25/ | Abstract | [facility] [place] | Dillon Schmidt, | | | 2017 | | NEUROSURGERY [address] | DO [address] | | | | | [address] | [address] [place], [place] | | | | | [place], [place] | [address] | | | | | [address] | | | | | | [phone] | | | +--------+ + + + [...]
--- OUTSIDE RECORDS SUMMARY | ~2020-05-02 | XMS | Encounter Summary ---
Demographics + + + | Address | [address] [facility] [address] | | | [place] [address] | + + + | Home Phone | | + + + | Preferred Language | Unknown | + + + | Marital Status | | + + + | Tenriism Affiliation | 1013 | + + + | Race | Unknown | + + + | Ethnic Group | Unknown | + + + Author + + + | Author | [facility] | | | and [place] | + + + | Organization | [facility] | | | [...] [place] | | | | | [address] | | + + + + + | Chey Hein | ECON | [place] | | | | | [address] | | + + + + + Care Team Providers + +------+ + | Care Casting House Laborer Name | Role | Phone | + [...] | | | | | | | CT LAMNOTMY | | | | | | [...] Description | +--------+---------+ + + + | 05/04/ | Surgery | [facility] | Pérez Hilliard MD | L5-S1 | | 2018 | | MED CTR OR INTRA OP | [address] | Microdiscectomy | | | | [address] | [place] [address] | | | | | [place] | [phone] | | | | | [address] | | | | | | [phone] | | | +--------+---------+ + + + [...] + + + | Blood Pressure | 98/58 | 05/04/2018 1:15 PM | | | | | PDT | | + + + + + | Pulse | 56 | 05/04/2018 1:15 PM | | | | | PDT | | + + + + + | Temperature | 36.3 C (97.3 F) | 05/04/2018 12:05 PM | | | | | PDT | | + + + + + | Respiratory Rate | 16 | 05/04/2018 1:15 PM | | | | | PDT | | + + + + + | Oxygen Saturation | 99% | 05/04/2018 1:15 PM | | | | | PDT [...] these visits. You may get emails from [facility] about your clinical results for the next [...] guidance for your postoperative journey in the [facility] for [facility] Surgery booklet that you were provided either in Spine Class or at the [facility]. Please use it as a guide as [...] signed by: Pérez Hilliard MD, 05/04/2018 10:01 [facility] uToni marr PA - 04/07/2018 9:30 AM PDT NEERAJ Martel [address] [facility], [address] [place], [place] [address] FAX: [phone] NEUROSURGERY FOLLOW-UP CHIEF COMPLAINT: Chief Complaint Patient presents with Pre-op Exam Lumbar HISTORY OF PRESENT ILLNESS: The patient is a 43 y.o. female with the complaint of right le g pain symptoms that began at least 6 years ago, but is worse since May 2017. Since e was last seen she describes that her symptoms have gotten much better. 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 She works at [employer]. She has 1-2 fl are ups a [...] has no apparent deficits with short or prison memory. CRANIAL NERVES: II: Acuity is intact. [...] ride from room upon discharge. lan of [facility] Linda Nunez MSW - 05/04/2018 4:56 PM PDTProblem: Discharge Planning Goal: Patient will be discharged in a safe manner Outcome: Improving This bilingual case manager spoke with PT who states that patient needs resources on a shower chair. This CM provided patient with a [employer] flyer and explained to her how [...] RESTRAINT-RELATED GOALS: STRATEGIES TO ACHIEVE RESTRAINT GOALS: [facility] Physical Therapy OPIB Plan of Care Patient [...] Functional Level Comment: independent, working at the [employer] available assistance at discharge: Living Environment/Accessibility: [...] Bed Mobility Supine to Sit, Level of Fannin: modified independent Sit to Supine, Level of Fannin: modified independent Transfers Sit-Stand, Level of Fannin: modified independent Stand-Sit, Level of Fannin: modified independent Gait Level of Fannin: modified independent Assistive Device: none Distance (feet): 550 Stairs SO present for training, supervision d/t line management and pt report of feeling "like I'v e had a couple drinks" Number of Stairs: 4 Level of Fannin: supervised Assistive Device: 1 rail Technique Used: [...] Testing Results: no strength deficits were identified [facility] BASIC MOBILITY [facility] BASIC MOBILITY Turning over in bed: [...] CGA, SBA, Supervision/a little help TOTAL - [facility] BASIC MOBILITY : 23 Completed the [facility] Activity Measure for Post Acute Care (AM-PAC) "6 Clicks" [facility] Mobility Inpatient Short Form. This version of the AM-PAC is an assessment tool used to measure a person's level of disability in performing basic mobility tasks. This patient's score indicates a performance of 11.2% impairment in the functioning of basic mobility. Raw Score - Functional Limitation % (for CMS) - "Severity Modifier" CN 6 - 100.00 [...] 14 IRF = 13.6 LTAC = 11.5 [facility] Daily Activity [facility] DAILY ACTIVITY Putting on /taking off [...] independent or modified independent/no help TOTAL - [facility] DAILY ACTIVITY : 24 Completed the [facility] Activity Measure for Post Acute Care (AM-PAC) "6 Clicks" [place] Activity Inpatient Short Form. This version of the AM-PAC is an assessment tool used to measure a person's level of disability in performing functional daily tasks. This patient' s score indicates a performance of 0% impairment in the functioning of basic daily activiti es. Raw Score - Functional Limitation % (for CMS) - "Severity Modifier" CN 6 - 100.00 [...] Reporting: PT G-Codes Functional Assessment Tool Used: [facility] Basic Mobility Score: 11.2 Functional Limitation: [...] Code Minutes: 10 Electronically signed by: Willow Langston, PT, 05/04/2018 15:41 p Note - Pérez Hilliard MD - 05/04/2018 12:15 PM PDTFormatting of this note might be different from the or iginal. Operative Note Fabio Fisher 43 y.o. female 1975 [id number] Proc. Date 05/04/2018 Preop Dx Lumbar disc herniation with radiculopathy Postop Dx same Procedure Minimally invasive L5 right laminotomy, L5-S1 microdiscectomy with microsurgical technique, fluoroscopy and operating microscopy Anesthesia General Surgeon Pérez Hilliard MD - Primary Collar Band Creaser Antonio Bowen PA-C EBL 9 Findings L5-S1 [...] signed by: Pérez Hilliard MD 05/04/2018 12:13 [facility] rief Op Note - Jesús Hilliard MD - 05/04/2018 12:13 PM PDTFormatting of this note might be different from the origin al. Brief Operative Note Fabio Fisher 43 y.o. female 1975 [id number] Proc. Date 05/04/2018 Preop Dx Lumbar disc herniation with radiculopathy Postop Dx same Procedure Minimally invasive L5 right laminotomy, L5-S1 microdiscectomy with microsurgical technique, fluoroscopy and operating microscopy Anesthesia General Surgeon Pérez Hilliard MD - Primary Collar Band Creaser Antonio Bowen PA-C EBL 9 Findings L5-S1 disc herniation with acute and calcified components. Complications none Specimens * No specimens in log * Drains none Electronically signed by: Pérez Hilliard MD 05/04/2018 12:13 [facility] signed by Pérez Hilliard MD at [...] | | [place] | | | n [place] | | | | | | cable supervisor | | | ep: | | | [...] | | [place] | | | [place] | | | | | | cable supervisor | | | ep: | | | [...] + | [address] | [address] | [place] | [phone] | | [facility] | | [address] | | | - LABORATORY | | | | + + + + + [place] C-Beto Stats No Charge (05/04/2018 12:06 PM PDT) [...] [address] | [place] | [phone] | | [facility] | | [address] | | | - LABORATORY | | [...] | 1.010, 1.015, | | | | [place], | | 1.020, 1.025 | | | | POC | | | | | + + + + + + | Lot Number | [id number] | | | | + + + + + + | Expiration | 2019-08-31 | | | | | Date | | | | | + + + + + + + + | Specimen | + + | Urine | + + documented in this encounter Visit Diagnoses Not on filedocumented in this encounter Administered Medications + +--------+ +---------+------+ + | Medication Order | MAR | Action | Dose | Rate | Site | | | Action | Date | | | | + +--------+ +---------+------+ + | bacitracin in NS solution PRN, | Given | 05/04/20 | 50,000 | | Surgical | | Starting 05/04/18 at 1114, | | 18 11:14 | Units | | Site | | Intra-op | | AM PDT | | | | + +--------+ +---------+------+ + +---+---+ | | | +---+---+ + +-------+ +--------+---+ + | bupivacaine 0.5%-EPINEPHrine | Given | 05/04/20 | 20 mLs | | Surgical | | 1:200,000 injection PRN, | | 18 11:55 | | | Site | | Starting Fri05/04/18 at 1155, | | AM PDT | | | | | Intra-op | | | | | | + +-------+ +--------+---+ + + +---+ | | | + +---+ | diphenhydrAMINE (BENADRYL) 12.5 | | | mg/5 mL liquid 25 mg 25 mg, | | | Oral, EVERY 4 HOURS PRN, Itching, | | | Starting Fri05/04/18 at 1347, | | | Oral route [...] +---+---+ | | | +---+---+ + +-------+ +-------+---+ + | methylPREDNISolone acetate | Given | 05/04/20 | 40 mg | | Surgical | | (DEPO-MEDROL) 40 mg/mL injection | | 18 11:47 | | | Site | | PRN, Starting Fri05/04/18 at | | AM PDT | | | | | 1147, Intra-op | | | | | | + +-------+ +-------+---+ + +---+---+ | | | +---+---+ + +-------+ [...] HOURS, | | | First dose on Fri05/04/18 at | | | 1045, Each patch is designed to | | | deliver 1 mg over 3 days. DO NOT | | | CUT patch., | | + +---+ | | | + +---+ documented in this encounter
--- OUTSIDE RECORDS SUMMARY | ~2020-05-02 | XMS | Encounter Summary ---
Demographics + + + | Address | [address] | | | [place] [address] | + + + | Home Phone | | + + + | Preferred Language | Unknown | + + + | Marital Status | | + + + | Worship Affiliation | 1013 | + + + | Race | Unknown | + + + | Ethnic Group | Unknown | + + + Author + + + | Author | [facility] | | | and [place] | + + + | Organization | [facility] | | [...] [place] | | | | | [address] | | + + + + + | Chey Hein | ECON | [place] | | | | | [address] | | + + + + + Care Team Providers + +------+ + | Care Monitor Technician Name | Role | Phone | [...] | | | [address] [place] | [place] [address] | | | | | [place] [address] | | | | | | [phone] | | | +--------+ + + + [...] LUMBAR SPINE 4 + | Routin | 07/21/2017 | | Results for this | | VW | e | 8:45 AM | | procedure are in the | | | | PDT | | results section. | + +--------+ + + + documented in this encounter Results XR Lumbar Spine 4 + Vw (07/21/2017 8:45 AM PDT) + + | Specimen | + + | | + + + + + | Narrative | Performed At | + + + | External films | [facility] | | for comparison only - no result from [place]. | | + + + + +---------+ + + | Performing | Address | City/State/Zipcode | Phone Number | | Organization | | | | + +---------+ + + | [facility] | | | | + +---------+ + + documented in this encounter Visit Diagnoses Not on filedocumented in this encounter"
--- OUTSIDE RECORDS SUMMARY | ~2020-05-02 | XMS | Encounter Summary ---
Demographics + + + | Address | [address] | | | [place] [address] | + + + | Home Phone | | + + + | Preferred Language | Unknown | + + + | Marital Status | | + + + | Jain Affiliation | 1013 | + + + | Race | Unknown | + + + | Ethnic Group | Unknown | + + + Author + + + | Author | [facility] | | | and [place] | + + + | Organization | [facility] | | | [...] [place] | | | | | [address] | | + + + + + | Chey Hein | ECON | [place] | | | | | [address] | | + + + + + Care Team Providers + +------+ + | Care Tallow Pumper Name | Role | Phone | + +------+ + PCP | Unavailable | + +------+ + Encounter Details +--------+ + + + + | Date | Type | Department | Care Team | Description | +--------+ + + + + | 09/23/ | Hospital | [facility] | Conversion | Herniated lumbar | | 2018 | Encounter | [facility] | Transaction, | intervertebral disc | | | | [address] | Provider Unknown | | | | | [place], [place] | | | | | | [address] | (Fax) | | | | | [phone] | | | +--------+ + + + [...] + +--------+ + + + | [place] EPIDURAL STEROID | Routin | 09/23/2017 | | Results for this | | INJ LUMBAR SACRAL | e | 3:01 PM | | procedure are in the | | INTERLAMINAR | | PST | | results section. | + +--------+ + + + documented in this encounter Results FL VENESSA Lumbar Sacral Interlaminar (09/23/2017 3:01 PM PST) + + | Specimen | + + | | + + + + + | Impressions | Performed At | + + + | Successful epidural steroid and anesthetic injection. | | | | | + + + + + + | Narrative | Performed At | + + + | [facility]IO ORDA[facility] 1975 42 years Female XR EPIDURAL | | | INTERLAMINAR INJECTION LUMBAR 09/23/2017 3:01 PM INDICATION: Disc | | | herniation. Back pain. COMPARISON: August 01, 2017 | | | TECHNIQUE: The procedure, benefits and risks were The patient and | | | informed consent was obtained. The patient was placed prone on the | | | fluoroscopy table. The area overlying the lower back was prepped and | | | draped in sterile fashion. Using 1% lidocaine anesthesia was obtained. | | | Using a 22-gauge needle access was gained to the epidural space at | | | the L4-L5 level (within intent to treat the L5-S1 level by gravitional | | | distribution of medication) and confirmed with 1 cc of Isovue-200 M | | | contrast. 40 mg of Kenalog admixed with 2 cc of 0.25% bupivacaine was | | | injected. The patient tolerated the procedure well without immediate | | | complication. Normal alignment of the lumbar spine. Radiation | | | dose: Peak skin dose: 0.9 mGy | | + + + + + | Procedure Note | + + | Rojas, Rad Conversion - 05/05/2019 2:31 PM PDT FABIO Zain ORDAZ1975 42 years | | FemaleXR EPIDURAL INTERLAMINAR INJECTION LUMBAR09/23/2017 3:01 PM INDICATION: Disc | | herniation. Back pain. COMPARISON: August 01, 2017 TECHNIQUE: The procedure, benefits | | and risks wereThe patient and informed consent was obtained. The patient was placed | | prone on the fluoroscopy table. The area overlying the lower back was prepped and draped | | in sterile fashion. Using 1% lidocaine anesthesia was obtained. Using a 22-gauge needle | | access was gained to the epidural space at the L4-L5 level (within intent to treat the | | L5-S1 level by gravitional distribution of medication) and confirmed with 1 cc of | | Isovue-200 M contrast. 40 mg of Kenalog admixed with 2 cc of 0.25% bupivacaine was | | injected. The patient tolerated the procedure well without immediate complication. | | Normal alignment of the lumbar spine. Radiation dose: Peak skin dose: 0.9 mGy | | IMPRESSION: Successful epidural steroid and anesthetic injection. | |was gained to the epidural space at the L4-L5 level (within intent to treat the L5-S1 level by gravitional distribution of medication) and confirmed with 1 cc of Isovue-200 M contrast . 40 mg of Kenalog admixed | |with 2 cc of 0.25% bupivacaine was injected. | | The patient tolerated the procedure well without immediate complication. | | | |Normal alignment of the lumbar spine. | | | |Radiation dose: Peak skin dose: 0.9 mGy | | | |IMPRESSION: | |Successful epidural steroid and anesthetic injection. | | | | | + + documented in this encounter Visit Diagnoses + + | Diagnosis | + + | Herniated lumbar intervertebral disc Displacement of lumbar intervertebral disc | | without myelopathy | + + documented in this encounter"
--- OUTSIDE RECORDS SUMMARY | ~2020-05-02 | XMS | Encounter Summary ---
Demographics + + + | Address | [address] [facility] [address] | | | [place] [address] | + + + | Home Phone | | + + + | Preferred Language | Unknown | + + + | Marital Status | | + + + | Nondenominational Affiliation | 1013 | + + + | Race | Unknown | + + + | Ethnic Group | Unknown | + + + Author + + + | Author | [facility] | | | and [place] | + + + | Organization | [facility] | | | [...] [place] | | | | | [address] | | + + + + + | Chey Hein | ECON | [place] | | | | | [address] | | + + + + + Care Team Providers + +------+ + | Care Surveillance Specialist Name | Role | Phone | + +------+ + | Iraida Loredo | PCP | | | PA-C | | | + +------+ + Encounter Details +--------+ + + + + | Date | Type | Department | Care Team | Description | +--------+ + + + + | 01/15/ | Episode | [facility] [place] | Suze Aragon, | | | 2017 | Changes | NEUROSURGERY [address] | Cert [place] | | | | | [address] [place] [address] | | | | | | [place] | | | | | | [address] | | | | | | [phone] | | | +--------+ + + + [...]
--- OUTSIDE RECORDS SUMMARY | ~2020-05-02 | XMS | Encounter Summary ---
Demographics + + + | Address | [address] [facility] [facility] [address] | | | [place] [address] | + + + | Home Phone | | + + + | Preferred Language | Unknown | + + + | Marital Status | | + + + | Sabianism Affiliation | 1013 | + + + | Race | Unknown | + + + | Ethnic Group | Unknown | + + + Author + + + | Author | [facility] | | | and [place] | + + + | Organization | [facility] | | | [...] [place] | | | | | [address] | | + + + + + | Chey Hein | ECON | [place] | | | | | [address] | | + + + + + Care Team Providers + +------+ + | Care Pillowcase Folder Name | Role | Phone | + +------+ + | Iraida Loredo | PCP | | | PA-C | | | + +------+ + Encounter Details +--------+ + + + + | Date | Type | Department | Care Team | Description | +--------+ + + + + | 04/22/ | Episode | [facility] [place] | Delia Granado, | | | 2018 | Changes | NEUROSURGERY [address] | [employer]ING [employer]NER | | | | | [address] | | | | | | [place] | | | | | | [address] | | | | | | [phone] | | | +--------+ + + + [...]
--- OUTSIDE RECORDS SUMMARY | ~2020-05-02 | XMS | Encounter Summary ---
Demographics + + + | Address | [address] [address] | | | [place] [address] | + + + | Home Phone | | + + + | Preferred Language | Unknown | + + + | Marital Status | | + + + | Gnosticist Affiliation | 1013 | + + + | Race | Unknown | + + + | Ethnic Group | Unknown | + + + Author + + + | Author | [facility] | | | and [place] | + + + | Organization | [facility] | | | [...] [place] | | | | | [address] | | + + + + + | Chey Hein | ECON | [place] | | | | | [address] | | + + + + + Care Team Providers + +------+ + | Care Line Walker Name | Role | Phone | + +------+ + | Iraida Loredo | PCP | | | PA-C | | | + +------+ + Encounter Details +--------+ + + + + | Date | Type | Department | Care Team | Description | +--------+ + + + + | 01/28/ | Episode | [facility] [place] | Suze Aragon, | | | 2017 | Changes | NEUROSURGERY [address] | Cert [place] | | | | | [address] | | | | | | [place] | | | | | | [address] | | | | | | [phone] | | | +--------+ + + + [...]
[2020-05-02] MEDS ORDERED: MORPHINE SULFAT15 MG PO (15:10)
[2020-05-02] MEDS ORDERED: ONDANSETRON ODT4 MG SL (15:10)
== END 2020-05-02 15:24 | disposition home or self-care (01) ==
LOC: ED 09:20
DX: M54.16 Radiculopathy, lumbar region (principal); Z88.5 Allergy status to narcotic agent; Z88.8 Allergy status to other drugs, medicaments and biological substances
CPT/HCPCS: 72148; 99284-25

== ENCOUNTER 2021-01-24 07:35 | Day surgery (SDC) | payer BC ==
[~2021-01-24] VITALS: Ht 165.1 cm; Wt 66.8 kg
[~2021-01-24 07:35] MED LIST: CO Q-1010 MG; DHEA25 MG; MORPHINE SULFAT15 MG PO; ONDANSETRON ODT4 MG SL
--- NOTE | 2021-01-24 10:21 | NUR ---
01/24/21 1021 Sheets,Opal 1013 PT ARRIVED TO PACU ON 6L VIA MASK, RESP EVEN AND UNLABORED. PT WAKES AND IS REORIENTED TO PACU. PT FALLS RIGHT BACK TO SLEEP. VSS.
--- NOTE | 2021-01-24 11:08 | NUR ---
PATIENT BACK IN DAY SURGERY ROOM FROM PACU. DENIES PAIN, DENIES NAUSEA. DROWSY. BUT EASILY AWAKENS TO VOICE. PERIPAD IN PLACE WITH SCANT AMOUNT OF RED DRAINAGE. IV SITE WNL. SCDs ON. ICE WATER AND PUDDING PLACED AT BEDSIDE. CALL LIGHT WITHIN REACH.
[2021-01-24] MEDS ORDERED: ULTRAM50 MG PO (11:30)
[2021-01-24] MEDS ORDERED: IBUPROFEN800 MG PO (11:30)
--- NOTE | 2021-01-24 14:15 | NUR ---
1130: PATIENT ASSISTED OOB AND TO BATHROOM. GATI STEADY. VOID WITHOUT DIFFICULTY. SMALL AMOUNT OF VAGINAL DRAINAGE. GAIT STEADY BACK TO BED. TOLERATED PUDDING. PATIENT RESTING. CALL LIGHT WITHIN REACH. 1155: VS CHECKED. PATIENT READY TO GO HOME. 1220: DISCHARGE INSTRUCTIONS GIVEN TO PATIENT. PRESCRIPTIONS CALLED IN TO [facility] PER PATIENT REQUEST. IV DC'D WNL. TIP INTACT. DRESSING APPLIED. 1230: PATIENT DISCHARGED TO HOME VIA WHEELCHAIR WITH FRIEND.
--- NOTE | 2021-01-26 14:04 | PATH ---
[facility] [address] [place], [place] [address] Signed SPECIMEN(S): A ENDOMETRIAL POLYP SPECIMEN SOURCE: A. ENDOMETRIAL POLYP CLINICAL HISTORY: Intrauterine synechiae FINAL PATHOLOGIC DIAGNOSIS: Endometrium, polyp, polypectomy: - Fragments of proliferative endometrium with focal disordered proliferation. - Fragments of myometrial smooth muscle with no histopathologic abnormality. - Negative for hyperplasia or malignancy. NAL:cml:C2NR MICROSCOPIC EXAMINATION: Histologic sections of all submitted blocks are examined by light microscopy. These findings, together with the gross examination, support the pathologic diagnosis. GROSS DESCRIPTION: The specimen, labeled "AD," and designated on the requisition "endometrial polyp," is received in formalin and consists of multiple fragments of pink-burns soft tissue (1.8 x 1.4 x 0.4 cm in aggregate). The tissue is submitted entirely in cassette A1. AC (under the direct supervision of a pathologist) The Gross Description was prepared using a voice recognition system. The report was reviewed for accuracy; however, sound-alike word errors, addition and/or deletions may occur. If there is any question about this report, please contact Client Services. PERFORMING LABORATORY: The technical component was performed by [facility], [address] [place] [id number] (Truck Driver'S Offsider: Ines Cheema MD; CLIA# [id number]). [facility] [address] [address] (CLIA# [id number]). Diagnostician: Araceli Mathew MD Pathologist Electronically Signed 01/26/2021 PATIENT NAME: MARIA ELENA WRIGHT PATHOLOGY DATE OF : 79 REPORT #: [id number] PHYSICIAN: JAMILA FAY PCP: ANGELICA LAY PA-C REPORT IS CONFIDENTIAL AND NOT TO BE RELEASED WITHOUT AUTHORIZATION [address] [address] Signed Copies: ~ PATIENT NAME: MARIA ELENA WRIGHT PATHOLOGY DATE OF : 79 REPORT #: [id number] PHYSICIAN: JAMILA PATHOLOGY PCP: ANGELICA LAY PA-C REPORT IS CONFIDENTIAL AND NOT TO BE RELEASED WITHOUT AUTHORIZATION
--- NOTE | 2021-01-28 11:24 | OR ---
[facility] [address] [place], [place] [address] Signed DATE OF OPERATION: 01/24/2021 SURGEON: Mago Aguilar MD PREOPERATIVE DIAGNOSIS: Intrauterine synechiae. POSTOPERATIVE DIAGNOSIS: Endometrial polyps. ANESTHESIA: General LMA. ESTIMATED BLOOD LOSS: Minimal. DRAINS: None. 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 The patient has not had any prior uterine surgery. At the time of surgery, exam under anesthesia revealed a normal-size uterus with normal adnexa. The uterus sounded to 9 cm. On hysteroscopy, there was no intrauterine synechiae, but there were some small polyps present. DESCRIPTION OF PROCEDURE: The patient was prepped and draped in the dorsal lithotomy position. A weighted speculum was placed and the anterior lip of the cervix was visualized and grasped with a single-tooth tenaculum. The cavity was sounded to 9 cm. The endocervical canal was then dilated to an #8 dilator. The MyoSure device was placed. Inspection of the cavity showed no evidence of any scar tissue, but there were some fundal polyps on the upper left as well as the lower right. The MyoSure Lite was then introduced and these polyps were removed without any difficulty. The remaining cavity appeared completely normal. The procedure was then terminated with removal of the MyoSure device. The tenaculum was removed. There was some ongoing bleeding from the left hand tenaculum site, which responded to pressure with a ring forceps. Following this, there was no evidence of ongoing bleeding and the procedure was terminated. Instruments removed from the vagina. The patient was taken to the recovery room in good condition. Electronically Signed By: MAGO AGUILAR MD 01/28/21 1124 PATIENT NAME: MARIA ELENA WRIGHT OPERATIVE REPORT DATE OF : 79 REPORT #: [id number] PHYSICIAN: MAGO AGUILAR MD PCP: ANGELICA LAY PA-C REPORT IS CONFIDENTIAL AND NOT TO BE RELEASED WITHOUT AUTHORIZATION [address] [address] Signed Mago Aguilar MD PJW/MODL /[id number] cc: MD [facility]ica [facility] Copies: ANEESH CUETO MD ~ Electronically Signed By: MAGO AGUILAR MD 01/28/21 1124 PATIENT NAME: MARIA ELENA WRIGHT FREDI OPERATIVE REPORT DATE OF : 79 REPORT #: [id number] PHYSICIAN: MAGO AGUILAR MD PCP: ANGELICA LAY PA-C REPORT IS CONFIDENTIAL AND NOT TO BE RELEASED WITHOUT AUTHORIZATION
== END 2021-01-24 12:30 | disposition home or self-care (01) ==
LOC: DS 07:35
PROVIDERS: ATTEND Obstetrics & Gynecology
PROC: 0UB98ZZ Excision of Uterus, Via Natural or Artificial Opening Endoscopic (ICD-10-PCS; principal; 2021-01-24 10:15)
DX: N84.0 Polyp of corpus uteri (principal); Z88.5 Allergy status to narcotic agent; Z88.8 Allergy status to other drugs, medicaments and biological substances
CPT/HCPCS: 00952; J0690; J1100; J1885; J2250; J2405; J2704; J2765; J3010; J7121